=== PATIENT | female | born 1965 | race Hispanic/Latino ===

== ENCOUNTER → 2024-06-12 | Outpatient (CLI) | payer SELFPAY ==
[~2024-06-12] MED LIST: IOHEXOL 350 MG/ML 100ML INFUS..BTL IV ONE; metoPROLOL tartRATE 1 MG/ML 5ML VIAL IV ONE
--- NOTE | 2024-06-12 10:55 | HMCIMG ---
CT CARDIAC ANGIO W/CONT. CCTA REASON: CHEST PAIN COMPARISON: None TECHNIQUE: Images are obtained through the heart in the axial plane before and during bolus IV contrast infusion, 100 cc Omnipaque 350. 2-D and 3-D multiplanar reconstruction images were then performed. The injection had to be repeated once due to motion artifact on the first sequence, total contrast volume was 200 cc. FINDINGS: This dictation is for the noncardiac findings only. Cardiac and coronary artery findings are reported separately. Visualized portions of the lungs are clear. There is normal-appearing pulmonary interstitium. There is no hilar or mediastinal lymphadenopathy. Chest wall structures appear unremarkable. IMPRESSION: 1. Unremarkable noncardiac portions of CT cardiac angiography.
--- NOTE | 2024-06-20 12:36 | CARDIOLOGY ---
RAD REPORT: [facility] CT ANGIO RADIOLOGY REPORT: CORONARY CT ANGIOGRAPHY DATE: Jun 20, 2024 QUALITY: Excellent CLINICAL HISTORY AND INDICATION: [ elevated CACs] TECHNIQUE: After obtaining a preliminary assembler steam and gas turbine image, contrast imaging performed on an [employer] [id number] scanner. A dedicated, limited window, coronary imaging protocol was used, with single breath-hold, retrospective ECG gating, and automated arrhythmia rejection. 100 cc of low osmolar contrast agent: Omnipaque 350 was delivered via a 18-gauge IV catheter in the right antecubital fossa, using a power injector and followed by 60 cc of normal saline bolus as a chaser. Collimated images were reformatted at 0.5 mm intervals, and sent to an offline independent workstation for interpretation, using 3D anatomic reconstructions: Curved multiplanar reconstructions, maximum intensity projections, and multiplanar imaging. No metoprolol was administered prior to scanning due to low baseline heart rate. 0.4 mg SL nitroglycerin was given. CORONARY ARTERY DESCRIPTIONS: The coronary arteries arise in normal position. Left main coronary artery: Normal caliber vessel that bifurcates into the LAD and LCx. No stenosis. Left anterior descending coronary artery: Normal caliber vessel and gives rise to diagonal and septal branches. There is a high risk plaque in the proximal LAD with positive remodeling and spotty calcification with 20-30% stenosis. There is a second high risk plaque in the mid LAD with positive remodeling and spotty calcification associated with 60-70% stenosis. Left circumflex coronary artery: Normal caliber, nondominant and gives rise to a large OM branch. No stenosis. Right coronary artery: Large, dominant vessel giving rise to the PL and PDA branches. No stenosis. CAD-RADs: Moderate to severe stenosis of the mid LAD, which is composed of high risk plaque features. Recommend left heart catheterization if angina or anginal equivalent symptoms and aggressive lipid lowering therapy. Thoracic Aorta: Normal diameter. Misa Salgado MD Cardiovascular Disease [facility] MISA SALGADO MD Jun 20, 2024 12:36
== END | disposition home or self-care (01) ==
LOC: RAH 09:35
PROVIDERS: ATTEND Internal Medicine Cardiovascular Disease
DX: R07.9 Chest pain, unspecified (principal)
CPT/HCPCS: 75574; J3490 ×2; Q9967

== ENCOUNTER 2024-10-27 23:32 | Inpatient (IN) | payer SELFPAY ==
[~2024-10-27] VITALS: Ht 160 cm; Wt 59.1 kg
--- NOTE | 2024-10-28 00:17 | ERN ---
ED Note History of Present Illness Stated Complaint: C/O SOB,CP,TINGLING W/NUMBNESS TO HANDS AND TOES Chief Complaint: Multiple Complaints Time Seen by MD: 00:15 Time Seen by Midlevel: 01:20 Dictation: Ms. Gusman is a 59 year-old female with history of type 2 diabetes, hypertension, hyperlipidemia, and hypothyroidism who presented to the emergency department for evaluation of chest pain. She reports intermittent left-sided chest pain as well as shortness of breath. She also reports feeling dizzy with position changes, chronic neck pain, and numbness and tingling of hands and feet. She denies fever, chills, cough, palpitations, edema, abdominal pain, nausea, vomiting, hematemesis, constipation, diarrhea, melena, hematochezia, dysuria, headache, dysarthria, dysphasia, vision changes, or focal weakness/paresthesia. She denies fall/trauma. She states she has not been taking any medications for her symptoms. She also states she has not been monitoring her blood glucose levels. PCP: Dr. Ovidio Marshall Allergies: Coded Allergies: No Known Allergies (Unverified Allergy, Unknown, 10/27/24) Past Medical History Past Medical History: Diabetes-Type II, High Cholesterol, Hypertension, Hypothyroid Surgical History: Hysterectomy PSYCH History: no pertinent psych hx Social History: Negative, Lives with family History: Not Applicable RN Note Reviewed/Agreed w/PFSH: Yes Review of System Dictation REVIEW OF SYSTEMS: CONSTITUTIONAL: Patient denies fevers, chills, sweats and weight changes. Reports fatigue and general weakness. EYES: Patient denies any visual symptoms. EARS, NOSE, AND THROAT: No difficulties with hearing. No symptoms of rhinitis or sore throat. CARDIOVASCULAR: Patient denies palpitations, orthopnea and paroxysmal nocturnal dyspnea. Reports intermittent left-sided chest pain. RESPIRATORY: No dyspnea on exertion, no wheezing or cough. Reports shortness of breath GI: No nausea, vomiting, diarrhea, constipation, abdominal pain, hematochezia or melena. : No urinary hesitancy or dribbling. No nocturia or urinary frequency. No abnormal urethral discharge. MUSCULOSKELETAL: Reports body aches. States I feel like I have been working out and all my muscles are sore. I have not been working out NEUROLOGIC: No chronic headaches, no seizures. Patient denies numbness, tingling or weakness. Reports dizziness with position changes. Reports tingling sensation of bilateral hands and feet. PSYCHIATRIC: Patient denies problems with mood disturbance. No problems with anxiety. ENDOCRINE: No excessive urination or excessive thirst. States she has not been monitoring blood glucose readings. DERMATOLOGIC: Patient denies any rashes or skin changes. Initial Vital Sign VS Vital Signs Date Time Temp Pulse Resp B/P (MAP) Pulse Ox O2 Delivery O2 Flow Rate FiO2 10/27/24 23:37 98.2 86 20 132/88 100 Room Air 10/28/24 03:45 0 21 Physical Exam Dictation Vital signs: Reviewed. Afebrile Constitutional: No acute distress. Non-toxic appearing. Head/Face: Normocephalic, atraumatic. Eyes: Periorbital areas with no swelling, redness, or edema. Lids and lashes are normal. Conjunctival injection is absent. Sclera anicteric. Pupils equal, round, reactive to light. ENT: Pinnas intact and no signs of trauma or erythema. Ear canals clear and no discharge. TMs no erythema. No nasal discharge or bleeding noted. Oropharynx with no exudate, redness, swelling, masses, exudates, or evidence of obstruction. Uvula midline. Mucous membranes moist. Neck: Trachea midline, no masses palpated, and no cervical lymphadenopathy. No swelling. Supple, full range of motion. Chest/Axilla: No tenderness, no crepitus, no paradoxical movement, no retractions. Cardiovascular: Regular rate, regular rhythm, no murmur, no gallops. Symmetric pulses. No peripheral edema. BP 130/88 Respiratory: Respirations even and unlabored. Lung sounds clear; no wheezes, rales or rhonchi. Room air SpO2 100% Gastrointestinal: Inspection is normal. No distention is appreciated. Bowel sounds are normal. No mass or organomegaly . There is no tenderness. No rebound. No rigidity. No voluntary or involuntary guarding. No Musa's sign. : Urine clear/yellow. Negative CVA tenderness bilaterally. Neurological: Normal speech, gross motor function intact, gross sensory function intact. No focal weakness/Paresthesia. There is no step off deformities or crepitus of the cervical/thoracic or lumbar spine. She has tenderness upon palpation of the entirety of the cervical spine. There is decreased pinprick in bilateral hands and feet. She has been ambulatory with steady gait. Musculoskeletal/Extremities: All extremities have full range of motion, no pain or tenderness on palpation. Symmetric pulses. Moves all extremities strong 5/5. Ambulates with steady gait. Integumentary: Intact. Skin is normal color, warm and dry. Cap refill less than 2 seconds. Results (Laboratory/Radiology) Laboratory/Radiology Laboratory Tests Test 10/28/24 02:08 10/28/24 02:48 White Blood Count 7.2 K/uL (4.8-10.8) Red Blood Count 4.67 MIL/uL (4.00-5.50) Hemoglobin 14.3 g/dL (12.0-16.0) Hematocrit 42.5 % (36-48) Mean Corpuscular Volume 91.0 fL (79-99) Mean Corpuscular Hemoglobin 30.6 pg (27.0-33.0) Mean Corpuscular Hemoglobin Concent 33.6 g/dL (32.0-36.0) Red Cell Distribution Width 12.1 % (11.0-15.5) Platelet Count 218 K/uL (130-400) Mean Platelet Volume 11.1 fL (7.5-10.5) H Immature Granulocyte % (Auto) 0.3 % (0-1) Neutrophils (%) (Auto) 53.3 % (40.0-77.0) Lymphocytes (%) (Auto) 36.1 % (21.0-51.0) Monocytes (%) (Auto) 7.1 % (3.0-13.0) Eosinophils (%) (Auto) 2.2 % (0.0-8.0) Basophils (%) (Auto) 1.0 % (0.0-5.0) Neutrophils # (Auto) 3.8 K/uL (1.8-7.7) Lymphocytes # (Auto) 2.6 K/uL (1.0-4.8) Monocytes # (Auto) 0.5 K/uL (0.1-1.0) Eosinophils # (Auto) 0.16 K/uL (0.00-0.70) Basophils # (Auto) 0.07 K/uL (0.00-0.20) Absolute Immature Granulocyte (auto 0.02 K/uL (0-1) Nucleated Red Blood Cells 0.0 % (0.0-0.19) Sodium Level 139 mmol/L (136-145) Potassium Level 3.8 mmol/L (3.5-5.1) Chloride Level 100 mmol/L (101-111) L Carbon Dioxide Level 29 mmol/L (21-32) Blood Urea Nitrogen 21 mg/dL (7-18) H Creatinine 0.6 mg/dL (0.5-1.0) Glomerular Filtration Rate Calc 103 mL/min (>90) Random Glucose 300 mg/dL (70-105) H Total Calcium 9.5 mg/dL (8.5-10.1) Total Bilirubin 0.5 mg/dL (0.2-1.0) Direct Bilirubin 0.1 mg/dL (0.0-0.3) Aspartate Amino Transf (AST/SGOT) 22 U/L (10-37) Alanine Aminotransferase (ALT/SGPT) 31 U/L (12-78) Alkaline Phosphatase 162 U/L (50-136) H Troponin I High Sensitivity < 4 ng/L (4-50) L Total Protein 8.4 g/dL (6.0-8.3) H Albumin 4.6 g/dL (3.5-5.0) Thyroid Stimulating Hormone (TSH) 1.93 uIU/mL (0.36-3.74) Urine Color COLORLESS (YELLOW) Urine Appearance CLEAR (CLEAR) Urine pH 5.0 (5.0-8.0) Urine Specific [place] 1.008 (1.001-1.031) Urine Protein NEGATIVE mg/dL (NEGATIVE) Urine Glucose (UA) >=1000 mg/dL (NEGATIVE) H Urine Ketones NEGATIVE mg/dL (NEGATIVE) Urine Occult Blood NEGATIVE (NEGATIVE) Urine Nitrate NEGATIVE (NEGATIVE) Urine Bilirubin NEGATIVE mg/dL (NEGATIVE) Urine Urobilinogen 0.2 mg/dL (0.2-1.0) Urine Leukocyte Esterase NEGATIVE Britni/uL Urine RBC None /HPF (0-1) Urine WBC 0-1 /HPF (0-1) Urine Bacteria RARE /HPF (None Seen) Labs Reviewed?: Yes EKG Comment: EKG Interpretation: Time Reviewed: 2342 Ventricular rate: 86 bpm MT Interval: 151 ms QRS duration: [address] segment elevation or depression. Clinical impression: Sinus rhythm EKG Reviewed and interpreted by Dr. Minor X-RAY Comment: PATIENT: JEMIMA GUSMAN MR#: [id number] : 1965 SEX: F AGE: 59 LOCATION: ED ORDER STATUS: [facility] ER REPORT#: [id number] SERVICE REASON: shortness of breath, chest pain ORDERING PHYSICIAN: JAMI HUYNH NP PROCEDURE: CXR1VW - CHEST 1VW EXAM: CR Chest, 1 view CLINICAL HISTORY: Shortness of breath. COMPARISON: Chest radiograph dated 07/24/2007. FINDINGS: The lungs show no infiltrates or other acute findings. No pleural effusion or pneumothorax. The cardiomediastinal silhouette is within normal limits. No acute osseous abnormality. IMPRESSION: No acute cardiopulmonary process is evident. No interval changes. /[place] DICTATED BY: REINIER LEIVA Jr., MD DATE: 10/28/24312 ELECTRONICALLY SIGNED BY: REINIER LEIVA Jr., MD DATE: 10/28/24312 CT Scan Comment: PATIENT: JEMIMA GUSMAN MR#: [id number] : 1965 SEX: F AGE: 59 LOCATION: [facility] ORDER 7 STATUS: [facility] REPORT#: [id number] SERVICE REASON: HEAD INJURY, HEADACHES ORDERING PHYSICIAN: JAMI HUYNH NP PROCEDURE: HEAD WO - CT HEAD/BRAIN W/O CONTRAST EXAM: Non-contrast CT examination of the Brain CLINICAL HISTORY: Head injury. TECHNIQUE: Thin collimated axial CT images of the brain were obtained with sagittal and coronal reformatted images also submitted. CT scan is done according to ALARA (As Low as Reasonably Achievable). CONTRAST USED: None. COMPARISON: None provided. FINDINGS: No acute intracranial abnormality is present. No acute cortical infarction, hemorrhage, mass, or mass effect. No hydrocephalus or abnormal extra-axial fluid collections. The posterior fossa is unremarkable. The skull base and calvarium are intact. The included portions of the paranasal sinuses and mastoid air cells are clear. IMPRESSION: No acute intracranial abnormality is present. /[place] DICTATED BY: REINIER LEIVA Jr., MD DATE: 10/28/24438 ELECTRONICALLY SIGNED BY: REINIER LEIVA Jr., MD DATE: 10/28/24438 ED Course ED Course Orders Procedure Category Date Status Time 12 Lead Ekg Tracing- EKG 10/27/24 Logged Technical 23:42 Chest 1vw RAD 10/28/24 Resulted 00:16 12 Lead Ekg Tracing- EKG 10/28/24 Logged Technical 00:16 Cbc With Differential LAB 10/28/24 Complete 00:16 Basic Metabolic Panel LAB 10/28/24 Complete 00:16 Hepatic Function Panel LAB 10/28/24 Complete 00:16 Urinalysis Profile LAB 10/28/24 Complete 00:16 Troponin I High LAB 10/28/24 Complete Sensitivity 00:16 Thyroid Stimulating LAB 10/28/24 Complete Hormone 02:20 Ct Cervical Spine W/O CT 10/28/24 Resulted Contrast 02:23 Ct Head/Brain W/O CT 10/28/24 Resulted Contrast 02:47 Insulin Regular, PHA 10/28/24 Complete Human 3ml (Humulin R 04:00 Current Medications Medications (Trade) Dose Ordered Sig/Becky Route PRN Reason Start Time Stop Time Status Last Admin Dose Admin Insulin Human Regular (humuLIN R 100 UNIT/ML 3ML) 8 unit ONCE ONCE IV 10/28/24 04:00 10/28/24 04:01 DC 10/28/24 04:04 Vital Signs Date Time Temp Pulse Resp B/P (MAP) Pulse Ox O2 Delivery O2 Flow Rate FiO2 10/28/24 03:45 77 18 129/76 98 Room Air* 0 21 10/27/24 23:37 98.2 86 20 132/88 100 Room Air Vital signs are stable; afebrile and normotensive with room air SpO2 98-100%. Patient complains of a intermittent left-sided chest pain which she described as "pinpricks . 12 lead EKG reflects a sinus rhythm without ST-elevation or depression. Chest x-ray is unremarkable with clear lung wayne. Noncontrast CT scan of the brain unremarkable; no intracerebral hemorrhage. CT scan of the cervical spine revealed questionable nondisplaced acute cortical fracture at the posterior inferior aspect of the C7 spinous process. Cervical vertebral heights well maintained. There her mild degenerative disc disease at multiple levels; most pronounced at C5-C6. There was mild bilateral neuroforaminal narrowing at C5-C6. MRI has been recommended. Finding were discussed with CELESTE Zelaya who accepts patient for admission to Hospitalist group. Dr. Zamorano will be consulted Medical Decision Making MDM MDM: Differential diagnosis: Uncontrolled diabetes/peripheral neuropathy, electrolyte derangement, thyroid dysfunction, ACS, spinal stenosis, ic hemorrhage Rationale: Tests considered and ordered secondary to shared decision making include: labs, ECG and radiology Previous outside records reviewed: Old ER visits. Risk of complication and/or morbidity or mortality of patient management: None Medications-Per medication reconciliation Need for hospitalization: Patient does meet criteria for hospitalization. Need for emergency major/minor surgery: No There are no social concerns with this patient. Prescription drug management Prescriptions will include symptomatic care Patient's prior external medical records from other ER visits were reviewed by me as indicated. Prior testing and results from previous visits were reviewed. Prior tests were taken into account with medical decision making and resource utilization, independent historian/historians were used to obtain complete medical history. I independently interpreted the test that were performed, results were reviewed by me and considered findings on radiology if ordered. Medical management and examination interpretation discussions were had by me with other qualified healthcare professionals as indicated for the patient's care. DX & DISP Disposition: Observation Departure Impression: Primary Impression: Type 2 diabetes mellitus with hyperglycemia Additional Impressions: qustionable acute cortical fracture of C7 sponous process on CT, Dizziness, Paresthesia of both hands, Paresthesia of both feet Condition: Stable Assign Patient to: Dr. Melvi Don Referrals: OVIDIO ALEXANDRE (PCP) JAMI HUYNH NP Oct 28, 2024 00:17
--- NOTE | 2024-10-28 02:14 | HMCIMG ---
EXAM: CR Chest, 1 view CLINICAL HISTORY: Shortness of breath. COMPARISON: Chest radiograph dated 07/24/2007. FINDINGS: The lungs show no infiltrates or other acute findings. No pleural effusion or pneumothorax. The cardiomediastinal silhouette is within normal limits. No acute osseous abnormality. IMPRESSION: No acute cardiopulmonary process is evident. No interval changes. /[place]
[2024-10-28 02:18] LABS: IMMATURE GRANULOCYTE ABSOLUTE 0.02 K/uL (0-1); NUCLEATED RED BLOOD CELLS 0.0 % (0.0-0.19); PLATELET COUNT (AUTO) 218 K/uL (130-400); RED BLOOD CELL COUNT(AUTO) 4.67 MIL/uL (4.00-5.50); RED CELL DISTRIBUTION WIDTH 12.1 % (11.0-15.5); WHITE BLOOD COUNT (AUTO) 7.2 K/uL (4.8-10.8)
[2024-10-28 02:27] LABS: CREATININE 0.6 mg/dL (0.5-1.0); GLOMERULAR FILTR. RATE CALC 103.0 mL/min (>90); GLUCOSE,RANDOM 300.0 mg/dL (70-105); SODIUM SERUM 139.0 mmol/L (136-145); UREA NITROGEN, BLOOD 21.0 mg/dL (7-18)
[2024-10-28 02:32] LABS: ASPARTATE AMINOTRANSFERASE 22.0 U/L (10-37); TOTAL PROTEIN, SERUM 8.4 g/dL (6.0-8.3)
[2024-10-28 02:58] LABS: APPEARANCE,URINE CLEAR (CLEAR); GLUCOSE, URINE (UA) >=1000 mg/dL (NEGATIVE); LEUKOCYTE ESTERASE ,URINE NEGATIVE Leu/uL (NEGATIVE); NITRATE,URINE NEGATIVE (NEGATIVE); OCCULT BLOOD,URINE NEGATIVE (NEGATIVE)
[2024-10-28 02:59] LABS: ADD UA MICROSCOPIC YES
--- NOTE | 2024-10-28 03:01 | NUR ---
PATIENT AT CT SCAN AT THIS TIME.
--- NOTE | 2024-10-28 03:40 | HMCIMG ---
EXAM: Non-contrast CT examination of the Brain CLINICAL HISTORY: Head injury. TECHNIQUE: Thin collimated axial CT images of the brain were obtained with sagittal and coronal reformatted images also submitted. CT scan is done according to ALARA (As Low as Reasonably Achievable). CONTRAST USED: None. COMPARISON: None provided. FINDINGS: No acute intracranial abnormality is present. No acute cortical infarction, hemorrhage, mass, or mass effect. No hydrocephalus or abnormal extra-axial fluid collections. The posterior fossa is unremarkable. The skull base and calvarium are intact. The included portions of the paranasal sinuses and mastoid air cells are clear. IMPRESSION: No acute intracranial abnormality is present. /[place]
--- NOTE | 2024-10-28 03:51 | HMCIMG ---
EXAM: CT Cervical Spine Without IV Contrast CLINICAL HISTORY: Numbness and tingling in both hands and fingers. TECHNIQUE: Thin collimated axial CT images of the cervical spine were obtained with sagittal and coronal reformatted images also submitted. CT scan done according to ALARA (As Low As Reasonably Achievable). CONTRAST: None. COMPARISON: None provided. FINDINGS: Questionable nondisplaced acute cortical fracture at the posterior inferior aspect of the C7 spinous process. The cervical vertebral body heights are maintained. Mild straightening of the expected cervical lordosis with subtle dextrocurvature reflects paraspinal muscle spasm. Mild spondylosis is evident by marginal osteophytes and facet arthropathy at multiple levels. Mild degenerative disc disease at multiple levels, most pronounced at C5-C6. Mild bilateral neuroforaminal narrowing at C5-C6. No spinal/stenosis. Presumed post-total thyroidectomy status. The included lungs are clear. No focal soft tissue abnormality is evident in the neck. IMPRESSIONS: Questionable nondisplaced acute cortical fracture at the posterior inferior aspect of the C7 spinous process. Please check clinically for local tenderness. MRI of the cervical spine may be done for further evaluation. Mild straightening of the expected cervical lordosis with subtle dextrocurvature reflects paraspinal muscle spasm. Mild spondylosis and degenerative disc disease, most pronounced at C5-C6. /[place]
--- NOTE | 2024-10-28 04:56 | NUR ---
STEVIE VEGETABLE TESTER AT BEDSIDE.
--- NOTE | 2024-10-28 05:40 | HP ---
[facility] Date of Service: Oct 28, 2024 Time of Service: 05:14 PCP: Rolando Nolan HISTORY OF PRESENT ILLNESS: This is a 59 year old female with past medical history of diabetes ,hypertension,hyperlipidemia and hypothyroidism who presents to the ED for multiple complaints such as intermittent chest pain located at left sided chest,shortness of breath ,temporal headache,dizziness ,neck pain,numbness and tingling sensation of both feet and left shoulder pain which has been on going for the past few weeks but decided to come because chest pain has been becoming more frequent now.Patient reports she knows her blood sugar has been high because she is not taking her meds because of the side effects she said.Patient reports she had a cardiac catheterization done in 2009 and she was unable to recall any result.Patient also states last she underwent a coronary CT angiography and result revealed high risk plaque in the mid LAD with 60-70% stenosis and plan to do cardiac cath if angina or anginal equivalent symptoms as per documentation on 06/20/2024 .Patient also reports she fell backward near the swimming pool at home 2 months ago and hitting her head but no loss of consciousness she said . Seen and examined patient in the Er awake ,alert and coherent,appears comfortable.Patient denies fever,chills,nausea,vomiting,abdominal pain,cough and palpitation. Latest vital signs temperature 98.2, heart rate 77, blood pressure 129/76, saturation 98% on room air. Labs: CBC result is unremarkable. Chloride 100, BUN 21, random glucose 300 alkaline phosphatase 162, total protein 8.4 TSH 1.93. Urinalysis significant with glucosuria otherwise unremarkable. CT head result revealed no acute intracranial abnormalities present. CT cervical spine without contrast result revealed questionable nondisplaced acute cortical fracture at the posterior inferior aspect of the C7 spinous process. Please check clinically for local tenderness. MRI of the cervical spine may be done for further evaluation. Mild straightening of the expected cervical lordosis with subtle dextro curvature reflects paraspinal muscle spasm. Mild spondylosis and degenerative disc disease most pronounced at C5-C6. Chest x-ray result revealed no acute cardiopulmonary process is evident. No interval changes. EKG result revealed sinus rhythm heart rate 86. While in the ER patient received 8 units of insulin IV. We will admit patient for further medical management. REVIEW OF SYSTEMS CONSTITUTIONAL: Denies fevers, chills, or night sweats. No unintentional weight loss reported. NEUROLOGICAL: Positive dizziness and headache Denies amaurosis fugax, motor weakness, sensory deficit, gait abnormalities, or tremors. ENT: No hearing loss, otalgia, otorrhea, rhinitis, rhinorrhea, hoarseness, or sore throat. CARDIOVASCULAR: Positive left sided chest pain Denies any dyspnea on exertion, orthopnea, paroxysmal nocturnal dyspnea, palpitations, life- threatening arrhythmias, claudication. PULMONARY: Positive shortness of breaths Denies cough, phlegm/sputum, hemoptysis, pleuritic chest pain. SLEEP: Denies morning headaches, daytime somnolence or napping. Denies difficulty falling asleep, staying asleep, waking from sleep. Denies knowledge of snoring. GASTROINTESTINAL: Denies any type of dysphagia to either liquids or solids. Denies nausea, vomiting, pyrosis, early satiety, abdominal pain, diarrhea, constipation, or changes in stool consistency or caliber. Denies coffee-ground emesis, hematemesis, hematochezia, or melanotic stools. GENITOURINARY: Denies frequency, urgency, nocturia, hematuria or incontinence (Storage/Irritative symptoms.) Low urinary stream, straining to void, urinary intermittency or hesitancy, splitting of the voiding stream, terminal dribbling. ENDOCRINOLOGIC: Denies polyuria, polydipsia, polyphagia or heat/cold intolerances. HEMATOLOGIC: Denies thrombophilia/previous clots, or coagulopathy/bleeding disorders. ONCOLOGIC: Denies personal history of malignancy. DERMATOLOGIC: Denies rashes or pruritus. PSYCHIATRIC: Denies any suicidal or homicidal ideation. Denies hallucinations. PAST MEDICAL HISTORY: [ Hypothyroidism, hyperlipidemia, hypertension and diabetes ] PAST SURGICAL HISTORY: [ Cardiac catheterization 2010 and hysterectomy] PAST SOCIAL HISTORY: [ Patient lives with . Patient admits to drinking two bottles of double X per week Patient denies cigarette and recreational drug use] FAMILY HISTORY: [Noncontributory ] Coded Allergies: No Known Allergies (Unverified Allergy, Unknown, 10/27/24) PHYSICAL EXAM GENERAL APPEARANCE: The patient is awake, alert, and oriented, in no acute cardiopulmonary distress. NEUROLOGICAL: Cranial nerves II-XII grossly intact. Motor is 5/5 in bilateral upper and lower extremities proximal to distal. No sensory deficits. HEENT: Face is symmetric. Pupils are equal and reactive. Extraocular movements are intact. NECK: Supple. No JVD. No thyromegaly. No submental, submandibular, pre- /postauricular, occipital or supraclavicular lymphadenopathy. CHEST: Normal chest expansion. No Telemetry. LUNGS: Absence of any rales, rhonchi or any wheezing. CARDIOVASCULAR: Regular. S1 and S2 normal. No appreciable rubs, murmurs or gallops. ABDOMEN: Soft, nontender, and nondistended. There is no rebound, voluntary guarding, or rigidity. : Deferred. No Mayers. EXTREMITIES: Positive paresthesia to both feet and hands Non-edematous and not cyanotic. No clubbing. Good capillary refill. SKIN: No skin breakdown. Vital Sign (Last 24 Hours) 10/27/24 10/28/24 23:37 03:45 Temp 98.2 Pulse 77 Resp 18 B/P (MAP) 129/76 Pulse Ox 98 O2 Delivery Room Air* O2 Flow Rate 0 FiO2 21 LABS: Laboratory: Test 10/28/24 02:48 10/28/24 02:08 Range/Units Urine Color COLORLESS YELLOW Urine Appearance CLEAR CLEAR Urine pH 5.0 5.0-8.0 Urine Specific [place] 1.008 1.001-1.031 Urine Protein NEGATIVE NEGATIVE mg/dL Urine Glucose (UA) >=1000 H NEGATIVE mg/dL Urine Ketones NEGATIVE NEGATIVE mg/dL Urine Occult Blood NEGATIVE NEGATIVE Urine Nitrate NEGATIVE NEGATIVE Urine Bilirubin NEGATIVE NEGATIVE mg/dL Urine Urobilinogen 0.2 0.2-1.0 mg/dL Urine Leukocyte Esterase NEGATIVE NEGATIVE Britni/uL Urine RBC None 0-1 /HPF Urine WBC 0-1 0-1 /HPF Urine Bacteria RARE None Seen /HPF White Blood Count 7.2 4.8-10.8 K/uL Red Blood Count 4.67 4.00-5.50 MIL/uL Hemoglobin 14.3 12.0-16.0 g/dL Hematocrit 42.5 36-48 % Mean Corpuscular Volume 91.0 79-99 fL Mean Corpuscular Hemoglobin 30.6 27.0-33.0 pg Mean Corpuscular Hemoglobin Concent 33.6 32.0-36.0 g/dL Red Cell Distribution Width 12.1 11.0-15.5 % Platelet Count 218 130-400 K/uL Mean Platelet Volume 11.1 H 7.5-10.5 fL Immature Granulocyte % (Auto) 0.3 0-1 % Neutrophils (%) (Auto) 53.3 40.0-77.0 % Lymphocytes (%) (Auto) 36.1 21.0-51.0 % Monocytes (%) (Auto) 7.1 3.0-13.0 % Eosinophils (%) (Auto) 2.2 0.0-8.0 % Basophils (%) (Auto) 1.0 0.0-5.0 % Neutrophils # (Auto) 3.8 1.8-7.7 K/uL Lymphocytes # (Auto) 2.6 1.0-4.8 K/uL Monocytes # (Auto) 0.5 0.1-1.0 K/uL Eosinophils # (Auto) 0.16 0.00-0.70 K/uL Basophils # (Auto) 0.07 0.00-0.20 K/uL Absolute Immature Granulocyte (auto 0.02 0-1 K/uL Nucleated Red Blood Cells 0.0 0.0-0.19 % Sodium Level 139 136-145 mmol/L Potassium Level 3.8 3.5-5.1 mmol/L Chloride Level 100 L 101-111 mmol/L Carbon Dioxide Level 29 21-32 mmol/L Blood Urea Nitrogen 21 H 7-18 mg/dL Creatinine 0.6 0.5-1.0 mg/dL Glomerular Filtration Rate Calc 103 >90 mL/min Random Glucose 300 H 70-105 mg/dL Total Calcium 9.5 8.5-10.1 mg/dL Total Bilirubin 0.5 0.2-1.0 mg/dL Direct Bilirubin 0.1 0.0-0.3 mg/dL Aspartate Amino Transf (AST/SGOT) 22 10-37 U/L Alanine Aminotransferase (ALT/SGPT) 31 12-78 U/L Alkaline Phosphatase 162 H 50-136 U/L Troponin I High Sensitivity < 4 L 4-50 ng/L Total Protein 8.4 H 6.0-8.3 g/dL Albumin 4.6 3.5-5.0 g/dL Thyroid Stimulating Hormone (TSH) 1.93 0.36-3.74 uIU/mL DIAGNOSTICS / RADIOLOGY: [ ] ASSESSMENT: Hyperglycemia - induced metabolic symptoms POA Diabetic neuropathy POA Chest pain R/O ACS POA Suspected cervical spine fracture per CT POA Uncontrolled diabetes due to medical non complaince with meds POA Hypertension POA Hyperlipidemia POA Hypothyroidism POA Moderate to severe stenosis of the mid LAD per CTA report on 06/20/2024 POA PLAN: We will admit patient in medical telemetry We will start on heart healthy and consistent carb diet We will start NS @ 100 ml / hr x 1 bag and re evaluate We will start on Aspirin 81 mg po daily atorvastatin 20 mg p.o. daily We will start on Famotidine 20 mg po bid for GI prophylaxis We will replace electrolytes as needed per protocol We will start on insulin sliding scale AC & HS with hypoglycemia protocol We will add prn medication for fever,pain,cough , nausea and vomiting We will reconcile home meds once medlist available We will seek Cardiology consultation We will seek neurosurgeon consultation We will trend troponin q.6 x3 Neuro check q.4 hours per nursing We will request labs in am Further orders to follow depending on above results Case discussed with attending physician and came up with above treatment and plan of care. ADVANCED CARE PLANNING 1. Which of the following were discussed? Hospice Care - No Therapeutic options - Yes Advance Directives - No Other discussions - 2. Discussed with who? Patient 3. Voluntary nature of this service was explained to the patient? Yes 4. Amount of time spent - __24 5. Reviewed by Physician? (if this service was performed by NPP) Yes Patient seen and examined by me. Agree with note by RADIO INSTALLER SEE ADDITIONAL ORDERS PER CHART DISCUSSED WITH NURSING STAFF DANNY HUBBARD INDUCTION MACHINE OPERATOR Oct 28, 2024 05:40
[2024-10-28] MEDS ORDERED: GLUCAGON 1MG KIT 1 MG ML IM PRN (06:00)
[2024-10-28] MEDS ORDERED: NITROGLYCERIN 0.4 MG SL TAB SL PRN (06:00)
[2024-10-28] MEDS ORDERED: PoTASSium chloRIDE 20MEQ ER 20 MEQ ERTAB PO PRN (06:00)
[2024-10-28] MEDS ORDERED: PoTASSium chl 10% ELIXIR 20MEQ 20 MEQ/15 ML UDCUP PO PRN (06:00)
[2024-10-28] MEDS ORDERED: DEXTROSE 50%-WATER 50 ML DISP.SYRIN IV PRN (06:00)
[2024-10-28] MEDS: 0.9%NACL 1000ML 1,000 ML IV SCH (06:24)
--- NOTE | 2024-10-28 06:39 | EKG ---
[facility] Test Date: 2024-10-27 Test Time: 23:35:49 Pat Name: JEMIMA JERNIGAN Department: [facility]IP Room: 329 Gender: F Diagrammer: [id number] : 1965 Requested By: MARCIE MATOS Order Number: [id number] Reading MD: Fariha Andujar Measurements Intervals [place] Rate: 86 P: 5 UT: 151 QRS: 54 QRSD: 82 T: 56 QT: 338 QTc: 404 Interpretive Statements Sinus rhythm No previous ECG available for comparison Electronically Signed On 10-29-2024 14:12:01 CDT by Fariha Andujar Please click the below link to view image of tracing.
[2024-10-28 07:49] LABS: IMMATURE GRANULOCYTE ABSOLUTE 0.01 K/uL (0-1); NUCLEATED RED BLOOD CELLS 0.0 % (0.0-0.19); PLATELET COUNT (AUTO) 183 K/uL (130-400); RED BLOOD CELL COUNT(AUTO) 4.21 MIL/uL (4.00-5.50); RED CELL DISTRIBUTION WIDTH 12.0 % (11.0-15.5); WHITE BLOOD COUNT (AUTO) 6.2 K/uL (4.8-10.8)
[2024-10-28 08:03] LABS: CREATININE 0.6 mg/dL (0.5-1.0); GLOMERULAR FILTR. RATE CALC 103.0 mL/min (>90); GLUCOSE,RANDOM 211.0 mg/dL (70-105); SODIUM SERUM 144.0 mmol/L (136-145); UREA NITROGEN, BLOOD 17.0 mg/dL (7-18)
[2024-10-28 08:14] LABS: ASPARTATE AMINOTRANSFERASE 18.0 U/L (10-37); LDL DIRECT 91.0 mg/dL (0-99); TOTAL PROTEIN, SERUM 7.3 g/dL (6.0-8.3)
[2024-10-28] MEDS: FAMOTIDINE 20MG TAB PO SCH (08:27)
[2024-10-28] MEDS: ASPIRIN 81 MG EC TAB PO SCH ×2 (08:27→10:30)
[2024-10-28] MEDS ORDERED: ASPIRIN 81 MG EC TAB PO SCH (09:00)
[2024-10-28 09:08] LABS: ERYTHROCYTE SEDIMENTATION RATE 10 MM/HR (0-30)
--- NOTE | 2024-10-28 09:42 | NUR ---
DCP: HOME Pt currently lives with her dgt in her home. Pt does not report insecurities with food, mcfp, and/or utilities. Pt does not use any DME, home health, or provider services. Pt is able to complete ADLs independently. PCP is Dr. Ovidio Bates and uses [facility] for any RX needs. At [place] pt will return home and family can assist with transportation. Addendum: 10/28/24 at 0944 by EVELINA MACIAS SS Amended: Links added.
--- NOTE | 2024-10-28 10:16 | CONS ---
Cardiology Consult Note Cardiology Attending: Chilo Hurt Consulting Physician: Maryist Date of Service: 10/28/24 Reason for Consult: Chest Pain HPI: This is a 59-year-old female with a past medical history of HTN, poorly controlled DM2 (hemoglobin A1c 14), HLP, hypertriglyceridemia, depression, thy roid cancer status post complete thyroidectomy done in 2008 with resulting hypothyroidism, left ventricle systolic dysfunction (LVEF 40-45% by echocardiogram done on 02/21/2024), calcium score of [address] Heart Saver exam done on 08/21/2023 and abnormal coronary CTA done on 06/20/2024 which identified 60-70% stenosis in the mid LAD who presents after experiencing a mechanical fall. The patient states that she slipped and fell and hurt her back. She subsequently came to the hospital and underwent a CT of the spine which identified a nondisplaced acute cortical fracture at the posterior inferior aspect of the C7 spinous process. MRI of the cervical spine and consult with Neurosurgery is pending. The patient also complains of chest pain, of more than three months in duration. The symptoms began spontaneously and during this timeframe has been intermittent and occur 3-4 times per week. The symptoms developed both at rest and with physical activity, and are described as dull in quality, 5/10 intensity, nonradiating. The symptoms last less than 5 minutes, resolved without any specific treatment. The patient denies any associated symptoms or any other active complaints including headache, syncope, palpitations, shortness for breath, dyspnea with exertion, PND, orthopnea, abdominal pain, weight gain, or lower extremity swelling/edema. PMH: Listed above PSH: Listed above FH: Significant for CAD, HTN, DMII, and CVA. SH: Denies alcohol, tobacco, or illicit drug use. Allergies: Coded Allergies: No Known Allergies (Unverified Allergy, Unknown, 10/27/24) Review of systems: General: Denies fever or chills HEENT: Denies changes in vision, earache or sore throat Neck: Denies pain or stiffness Cardio: As per the HPI Pulm: Denies SOB, coughing or wheezing GI: Denies abdominal pain, nausea, vomiting, diarrhea, or constipation. MSK: Positive for back pain. Heme: Denies anemia, easy bruising, or bleeding. Neuro: Denies headache, dizziness, or syncope. Psych: Denies anxiety, depression, or suicide ideations. Physical Exam: Vital Signs Date Time Temp Pulse Resp B/P (MAP) Pulse Ox O2 Delivery O2 Flow Rate FiO2 10/28/24 08:00 98.1 69 17 126/76 100 Room Air* 0 21 General: Alert and oriented x 3. NAD HEENT: NC/AT. Oral mucosa is moist. Neck: No masses, JVD, or carotid bruits Lungs: NRD. SCM. B/L CTA. No wheezing, rales or rhonchi. Cardio: Rate @ 69bpm. Normal S1 and S2. +S4. PMI was not displaced. Abdomen: Soft. NT. ND. Normal active bowel sounds x 4 quadrants. Extremities: No edema, clubbing or cyanosis. +2 pulses noted throughout. Neuro: CN II-XII were grossly intact. No focal deficits. Labs: Laboratory Tests Test 10/28/24 02:08 10/28/24 02:48 10/28/24 07:41 10/28/24 07:42 Range/Units White Blood Count 7.2 6.2 4.8-10.8 K/uL Red Blood Count 4.67 4.21 4.00-5.50 MIL/uL Hemoglobin 14.3 13.0 12.0-16.0 g/dL Hematocrit 42.5 37.9 36-48 % Mean Corpuscular Volume 91.0 90.0 79-99 fL Mean Corpuscular Hemoglobin 30.6 30.9 27.0-33.0 pg Mean Corpuscular Hemoglobin Concent 33.6 34.3 32.0-36.0 g/dL Red Cell Distribution Width 12.1 12.0 11.0-15.5 % Platelet Count 218 183 130-400 K/uL Mean Platelet Volume 11.1 H 10.8 H 7.5-10.5 fL Immature Granulocyte % (Auto) 0.3 0.2 0-1 % Neutrophils (%) (Auto) 53.3 46.9 40.0-77.0 % Lymphocytes (%) (Auto) 36.1 39.3 21.0-51.0 % Monocytes (%) (Auto) 7.1 9.7 3.0-13.0 % Eosinophils (%) (Auto) 2.2 3.1 0.0-8.0 % Basophils (%) (Auto) 1.0 0.8 0.0-5.0 % Neutrophils # (Auto) 3.8 2.9 1.8-7.7 K/uL Lymphocytes # (Auto) 2.6 2.4 1.0-4.8 K/uL Monocytes # (Auto) 0.5 0.6 0.1-1.0 K/uL Eosinophils # (Auto) 0.16 0.19 0.00-0.70 K/uL Basophils # (Auto) 0.07 0.05 0.00-0.20 K/uL Absolute Immature Granulocyte (auto 0.02 0.01 0-1 K/uL Nucleated Red Blood Cells 0.0 0.0 0.0-0.19 % Sodium Level 139 144 136-145 mmol/L Potassium Level 3.8 3.7 3.5-5.1 mmol/L Chloride Level 100 L 105 101-111 mmol/L Carbon Dioxide Level 29 29 21-32 mmol/L Blood Urea Nitrogen 21 H 17 7-18 mg/dL Creatinine 0.6 0.6 0.5-1.0 mg/dL Glomerular Filtration Rate Calc 103 103 >90 mL/min Random Glucose 300 H 211 H 70-105 mg/dL Total Calcium 9.5 9.2 8.5-10.1 mg/dL Total Bilirubin 0.5 0.6 0.2-1.0 mg/dL Direct Bilirubin 0.1 0.0-0.3 mg/dL Aspartate Amino Transf (AST/SGOT) 22 18 10-37 U/L Alanine Aminotransferase (ALT/SGPT) 31 26 12-78 U/L Alkaline Phosphatase 162 H 121 # 50-136 U/L Troponin I High Sensitivity < 4 L 4 4-50 ng/L Total Protein 8.4 H 7.3 6.0-8.3 g/dL Albumin 4.6 3.9 3.5-5.0 g/dL Thyroid Stimulating Hormone (TSH) 1.93 2.23 0.36-3.74 uIU/mL Urine Color COLORLESS YELLOW Urine Appearance CLEAR CLEAR Urine pH 5.0 5.0-8.0 Urine Specific [place] 1.008 1.001-1.031 Urine Protein NEGATIVE NEGATIVE mg/dL Urine Glucose (UA) >=1000 H NEGATIVE mg/dL Urine Ketones NEGATIVE NEGATIVE mg/dL Urine Occult Blood NEGATIVE NEGATIVE Urine Nitrate NEGATIVE NEGATIVE Urine Bilirubin NEGATIVE NEGATIVE mg/dL Urine Urobilinogen 0.2 0.2-1.0 mg/dL Urine Leukocyte Esterase NEGATIVE NEGATIVE Britni/uL Urine RBC None 0-1 /HPF Urine WBC 0-1 0-1 /HPF Urine Bacteria RARE None Seen /HPF Erythrocyte Sedimentation Rate 10 0-30 MM/HR Hemoglobin A1c 14.0 H 4.0-6.0 % Estimated Average Glucose (eAG) 355 H 70-126 mg/dL Magnesium Level 1.80 1.80-2.40 mg/dL Triglycerides Level 118 30-200 mg/dL Cholesterol Level 161 <200 mg/dL LDL Cholesterol 91 0-99 mg/dL HDL Cholesterol 46 35-85 mg/dL Vitamin B12 Level 370 193-986 pg/mL Free Thyroxine (T4) Direct 1.60 H 0.76-1.46 ng/dL Whole Blood Glucose 200 H 70-110 MG/DL Assessment: 1. Mechanical fall 2. Non displaced acute cortical fracture of the posterior inferior aspect of the C7 spinous process 3. Chest pain 4. Abnormal coronary CTA (60-70% stenosis in the mid LAD) 5. Left ventricle systolic dysfunction (LVEF 40-45% by echocardiogram done on 02/21/2024) 6. Poorly controlled DM2 (hemoglobin A1c 14) 7. HLP 8. Hypertriglyceridemia 9. HTN Plan: 1. Mechanical fall -Resulting in a nondisplaced acute cortical fracture of the posterior inferior aspect of the C7 spinous process -MRI of the spine is pending -Neurosurgery consult is pending 2. Chest pain -stable -ECG 10/27/2024: sinus rhythm. No ST elevation or depression noted. -laboratory data: Troponin I - <4, 4 -echocardiogram 02/21/2024: Mild concentric hypertrophy of the left ventricle was noted. There was mild anterior and apical hypokinesis. Left ventricle sys tolic function is mildly depressed, estimated LVEF 40-45%. Grade 1 diastolic dysfunction. Trace MR and TR by color-flow Doppler. -coronary CTA 06/20/2024: 60-70% stenosis in the mid LAD. the other arteries are grossly normal and free of stenosis -the patient presents with chest pain of more than three months in duration. The symptoms began spontaneously and during this timeframe has been intermittent and occur 3-4 times per week. The symptoms developed both at rest and with physical activity, and are described as dull in quality, 5/10 intensity, nonradiating. The symptoms last less than 5 minutes, resolved without any specific treatment. The patient denies any associated symptoms -the patient's symptoms are atypical, and thus far ACS has been ruled out. Of concern is the above-mentioned coronary CTA which identified 60-70% stenosis in the mid LAD. We were tentatively planning an LHC/coronary angiogram/possible PCI further evaluate and treat this issue, but the patient's mechanical fall, was resulting nondisplaced acute cortical fracture of the posterior inferior aspect of the C7 spinous process takes precedence. We will await Neurosurgery's recommendations regarding this issue before scheduling the procedure. In the meantime the patient will be started on goal-directed medical therapy which includes metoprolol succinate 25 mg daily, aspirin 81 mg daily, isosorbide mononitrate ER 30 mg daily and rosuvastatin 40 mg q.h.s.. 3. Left ventricle systolic dysfunction (LVEF 40-45% by echocardiogram done on 02/21/2024 -stable -continue metoprolol succinate 25 mg daily Thank you for this interesting consult and allowing us to participate in the care of your patient. Further recommendations to follow. CHILO HURT MD Oct 28, 2024 10:16
[2024-10-28 10:18] VITALS: O2SAT 98
[2024-10-28] MEDS: ISOSORBIDE MONO 30MG SR TAB PO SCH (10:35)
[2024-10-28 12:00] VITALS: BP 114/69; PULSE 84; RESP 17; TEMP 97.5
[2024-10-28 17:57] VITALS: BP 124/79; PULSE 73; RESP 18; TEMP 97.5; O2SAT 98
--- NOTE | 2024-10-28 18:20 | DS ---
HOSPITAL COURSE: The patient is a 59-year-old female patient who had been admitted through the emergency room with multiple complaints of generalized pain. CT scan was obtained and I was consulted due to the possible findings of a fracture. She recalls no trauma. She also referred some neck pain. Has been hemodynamically stable. She denies any nausea or vomiting and she does refer some heaviness in the chest and to the left shoulder as well. PHYSICAL EXAMINATION: GENERAL: She was asleep in her room at the emergency room. Easily arousable. She was able to answer questions properly. VITAL SIGNS: Stable. NECK: Minimal neck tenderness. CHEST: Symmetrical. She does refer the chest pain. ABDOMEN: Soft. NEUROLOGIC: She is able to move all 4 extremities. There are no motor or sensory disturbances noted. At this time, the patient has been evaluated and Primary Care has consulted Cardiology. Apparently, she is scheduled for a cardiac catheterization. A CT scan of the cervical spine was reviewed and there is no gross fracture or dislocation. They do refer the tip of the spinous process of C7, but for me, it does not seem to be anything acute, and if there is any fracture at all, there is no subluxation and there is somewhat decrease of the cervical lordosis. There is no gross disk herniation noted. The patient certainly would benefit from further evaluation from the cardiac standpoint of view and she can be followed at the clinic and/or pain management with physical therapy. The patient was addressed with the staff nurse present. TID: [id number] RECEIPT: [id number]
--- NOTE | 2024-10-28 18:49 | NUR ---
PATIENT ARRIVED TO ROOM 329 AT 1757.
[2024-10-28] MEDS ORDERED: ROSU40TA88 PO (19:09)
[2024-10-28] MEDS ORDERED: METO-408 PO (19:09)
[2024-10-28] MEDS ORDERED: LEVO150C5 PO (19:09)
[2024-10-28] MEDS ORDERED: GABA300C PO (19:09)
[2024-10-28] MEDS ORDERED: MELO-106 PO (19:09)
[2024-10-28] MEDS ORDERED: POTASSIUM PO (19:09)
[2024-10-28] MEDS ORDERED: LORA10TA7 PO (19:09)
[2024-10-28] MEDS ORDERED: TRAZ-185 PO (19:09)
[2024-10-28 20:00] VITALS: BP 111/65; PULSE 83; RESP 17; TEMP 97.5; O2SAT 83
[2024-10-28 23:59] VITALS: BP 120/77; PULSE 67; RESP 17; TEMP 97.5
[2024-10-29] VITALS (15 sets, daily range): BP systolic 111–136; BP diastolic 62–90; PULSE 67–92; RESP 16–20; TEMP 97.5–98.1; O2SAT 98
[2024-10-29 07:45] LABS: INR 0.97 (0.85-1.15)
[2024-10-29] MEDS ORDERED: LIDOCAINE HCL 400MG/20ML VIAL ONE (11:22)
[2024-10-29] MEDS ORDERED: IOHEXOL 350 MG/ML 100ML INFUS..BTL IV ONE ×2 (11:22→13:51)
[2024-10-29] MEDS ORDERED: HEParin-NS 1,000 UNIT/500 ML 1,000 ML IV ONE (11:22)
[2024-10-29] MEDS ORDERED: NITROGLYCERIN 50MG VIAL ONE (11:23)
--- NOTE | 2024-10-29 11:40 | NUR ---
PT OUT OF ROOM FOR C.
[2024-10-29] MEDS ORDERED: MIDAZOLAM HCL 1 MG/ML 2ML VIAL ONE ×2 (12:04→13:21)
--- NOTE | 2024-10-29 12:13 | CONS ---
CONSULT NOTE: endocrinology consult patient was not in the room and was in procedure. ASSESSMENT: Hyperglycemia -secondary to uncontrolled dm-2, POA hba1c 14.0% glucose are elevated. home meds unknown Diabetic neuropathy POA Chest pain R/O ACS POA cardiology following Suspected cervical spine fracture per CT POA Uncontrolled diabetes due to medical non compliance with meds POA Hypertension POA Hyperlipidemia POA Hypothyroidism POA Moderate to severe stenosis of the mid LAD per CTA report on 06/20/2024 POA plan: start lantus 15 units daily start regular insulin 5 units qac before meals increase ssi to medium dose ssi monitor glucose qx6 hourly thanks for allowing me to participate in patient care and will continue to follow up. Vital Signs 10/28/24 10/29/24 20:00 11:26 Temp 98.1 Pulse 70 Resp 18 B/P (MAP) 117/75 Pulse Ox 98 O2 Delivery Room Air O2 Flow Rate 0 FiO2 21 Hematology Labs: Test 10/28/24 07:41 Range/Units White Blood Count 6.2 4.8-10.8 K/uL Red Blood Count 4.21 4.00-5.50 MIL/uL Hemoglobin 13.0 12.0-16.0 g/dL Hematocrit 37.9 36-48 % Mean Corpuscular Volume 90.0 79-99 fL Mean Corpuscular Hemoglobin 30.9 27.0-33.0 pg Mean Corpuscular Hemoglobin Concent 34.3 32.0-36.0 g/dL Red Cell Distribution Width 12.0 11.0-15.5 % Platelet Count 183 130-400 K/uL Mean Platelet Volume 10.8 H 7.5-10.5 fL Immature Granulocyte % (Auto) 0.2 0-1 % Neutrophils (%) (Auto) 46.9 40.0-77.0 % Lymphocytes (%) (Auto) 39.3 21.0-51.0 % Monocytes (%) (Auto) 9.7 3.0-13.0 % Eosinophils (%) (Auto) 3.1 0.0-8.0 % Basophils (%) (Auto) 0.8 0.0-5.0 % Neutrophils # (Auto) 2.9 1.8-7.7 K/uL Lymphocytes # (Auto) 2.4 1.0-4.8 K/uL Monocytes # (Auto) 0.6 0.1-1.0 K/uL Eosinophils # (Auto) 0.19 0.00-0.70 K/uL Basophils # (Auto) 0.05 0.00-0.20 K/uL Absolute Immature Granulocyte (auto 0.01 0-1 K/uL Nucleated Red Blood Cells 0.0 0.0-0.19 % Erythrocyte Sedimentation Rate 10 0-30 MM/HR Chemistry Labs: Test 10/29/24 11:14 10/28/24 20:15 10/28/24 07:41 10/28/24 02:08 Range/Units Whole Blood Glucose 210 H 70-110 MG/DL Troponin I High Sensitivity < 4 L 4-50 ng/L Sodium Level 144 136-145 mmol/L Potassium Level 3.7 3.5-5.1 mmol/L Chloride Level 105 101-111 mmol/L Carbon Dioxide Level 29 21-32 mmol/L Blood Urea Nitrogen 17 7-18 mg/dL Creatinine 0.6 0.5-1.0 mg/dL Glomerular Filtration Rate Calc 103 >90 mL/min Random Glucose 211 H 70-105 mg/dL Hemoglobin A1c 14.0 H 4.0-6.0 % Estimated Average Glucose (eAG) 355 H 70-126 mg/dL Total Calcium 9.2 8.5-10.1 mg/dL Magnesium Level 1.80 1.80-2.40 mg/dL Total Bilirubin 0.6 0.2-1.0 mg/dL Aspartate Amino Transf (AST/SGOT) 18 10-37 U/L Alanine Aminotransferase (ALT/SGPT) 26 12-78 U/L Alkaline Phosphatase 121 # 50-136 U/L Total Protein 7.3 6.0-8.3 g/dL Albumin 3.9 3.5-5.0 g/dL Triglycerides Level 118 30-200 mg/dL Cholesterol Level 161 <200 mg/dL LDL Cholesterol 91 0-99 mg/dL HDL Cholesterol 46 35-85 mg/dL Vitamin B12 Level 370 193-986 pg/mL Thyroid Stimulating Hormone (TSH) 2.23 0.36-3.74 uIU/mL Free Thyroxine (T4) Direct 1.60 H 0.76-1.46 ng/dL Direct Bilirubin 0.1 0.0-0.3 mg/dL Coagulation Labs: Test 10/29/24 07:24 Range/Units Prothrombin Time 10.3 9.6-11.6 SEC Prothromb Time International Ratio 0.97 0.85-1.15 Activated Partial Thromboplast Time 23.3 L 26.3-35.5 SEC Current Medications Medications (Trade) Dose Ordered Sig/Becky Route Start Time Stop Time Status Last Admin Dose Admin Aspirin (Aspirin 81mg Ec Tab) 81 mg DAILY PO 10/28/24 09:00 10/28/24 06:12 DC Aspirin (Aspirin 81mg Ec Tab) 81 mg DAILY PO 10/28/24 09:00 10/28/24 10:22 DC 10/28/24 08:27 81 MG Aspirin (Aspirin 81mg Ec Tab) 81 mg DAILY PO 10/28/24 10:30 11/27/24 10:29 Atorvastatin Calcium (LIPItor 20MG) 20 mg HS PO 10/28/24 21:00 10/28/24 10:18 DC Atorvastatin Calcium (LIPItor 40MG) 40 mg HS PO 10/28/24 21:00 11/27/24 20:59 10/28/24 20:31 40 MG Famotidine (Pepcid 20mg Tab) 20 mg BID PO 10/28/24 09:00 11/27/24 08:59 10/28/24 20:31 20 MG Insulin Glargine (LANtus 100 UNITS/ML 10 ML VIAL) 11 units HS SQ 10/29/24 21:00 11/28/24 20:59 Insulin Human Regular (humuLIN R 100 UNIT/ML 3ML) 4 unit TIDAC SQ 10/29/24 11:30 11/28/24 11:29 Insulin Human Regular (humuLIN R 100 UNIT/ML 3ML) INSULIN SLIDING SCAL... ACHS SQ 10/28/24 07:30 11/27/24 07:29 10/28/24 21:11 5 UNIT Isosorbide Mononitrate (Imdur 30mg Sr) 30 mg DAILY PO 10/28/24 10:30 11/27/24 10:29 10/28/24 10:35 30 MG Metoprolol Succinate (TopROL XL) 25 mg DAILY PO 10/28/24 10:30 11/27/24 10:29 10/28/24 10:35 25 MG Sodium Chloride 1,000 ml @ 100 mls/hr Q10H IV 10/28/24 06:00 11/27/24 05:59 7/9/25 02:55 100 MLS/HR NAILA WASHINGTON MD Oct 29, 2024 12:13
[2024-10-29] MEDS ORDERED: HEParin-NS 1,000 UNIT/500 ML 500 ML IV ONE (13:24)
--- NOTE | 2024-10-29 13:30 | NUR ---
PATIENT OFF THE FLOOR FOR HEART CATH. PT TEAM TO FOLLOW. Addendum: 10/29/24 at 1503 by GUZMAN NICOLE PT Amended: Links added.
[2024-10-29] MEDS ORDERED: ASPIRIN 325MG EC TAB PO ONE (13:55)
--- NOTE | 2024-10-29 14:28 | NUR ---
REPORT RECEIVED FROM FELICIA MEDLEY FROM [facility]. PT WILL BE TRANSFERRING BACK TO ROOM 329.
[2024-10-29] MEDS ORDERED: DEXTROSE 50%-WATER 50 ML DISP.SYRIN IV PRN (14:30)
[2024-10-29] MEDS ORDERED: GLUCAGON 1MG KIT 1 MG ML IM PRN (14:30)
--- NOTE | 2024-10-29 14:40 | NUR ---
PT BACK IN ROOM 329, RADIAL BAND, S/P LEAH CATH TO RIGHT WRIST, NO SIGN OF BLEEDING, DENIES ANY PAIN AT THIS TIME. SPOUSE AT BEDSIDE. POST VS IN PLACED, STABLE VS. CALL LIGHT WITHIN REACH.
[2024-10-29] MEDS: 0.9%NACL 1000ML 1,000 ML IV SCH (14:57)
--- NOTE | 2024-10-29 17:00 | NUR ---
NURSE NOTE COMPLETE REMOVING 9ML OF AIR IN RADIAL BAND, RADIAL BAND REMOVED PER ORDER, APPLIED PRESSURE WITH 4X4 AND TEGADERM. NO SIGN OF BLEEDING, DENIES ANY PAIN OR DISCOMFORT. CALL LIGHT WITHIN REACH. PT IS AWARE NOT TO APPLY PRESSURE ON HAND AND WILL BE BEDREST FOR 4 HR POST PROCEDURE UNTIL 1900.
--- NOTE | 2024-10-29 17:21 | PRN ---
PROCEDURE NOTE Indications: Chest pain, CCS III symptoms Abnormal coronary CTA done on 06/20/2024 Left ventricle systolic dysfunction (LVEF 40-45% by echocardiogram done on 02/21/2024) Procedures: Coronary angiogram, IFR of the LAD, OCT of the LAD, balloon angioplasty and SHERRELL placement in the LAD Introduction: After informed written consent was obtained, the patient was brought to the Catheterization Lab in the usual fasting state. Following sterile prep and drape, a time out was performed, then moderate sedation was administered, 1mg of Versed and 50mcg of Fentanyl, then 1% Lidocaine was infiltrated into the right wrist. Using a Modified Seldinger technique, a 6Fr Sheath was inserted into the right radial artery. While under fluoroscopic guidance, diagnostic coronary catheters were advanced over a wire into the central circulation where they were aspirated, flushed and placed to pressure monitoring, once the wire was removed. Coronary Angio: The left and right coronary arteries were engaged with appropriate catheters and angiography was performed under continuous pressure monitoring. Cardiac Findings: Right dominant system LM: Large caliber vessel with mild luminal irregularities. The vessel bifurcates into the LAD and LCX. LAD: A medium caliber vessel with 70-80% stenosis of the mid LAD. ARLIN 3 blood flow distally. Diagonal 1: Small caliber vessel with mild luminal irregularities Diagonal 2: Small caliber vessel with mild luminal irregularities LCx: Medium caliber vessel with mild luminal irregularities High OM 1: Medium caliber vessel with 30% stenosis in the proximal OM1 RCA: Large caliber vessel with with 20% stenosis in the proximal and mid RCA. RPDA: Medium caliber vessel with mild luminal irregularities. RPLV: Medium caliber vessel mild luminal irregularities Medications given: Versed 3mg, Fentanyl 100mcg, aspirin 325 mg x 1 dose, ticagrelor 180, nicardipine 600 mcg, nitro glycerin 600 mcg, heparin 7000 units Coronary Intervention: Guide catheter: [place] Guide wire: iFR wire After reviewing the above-mentioned findings the decision was made to further evaluate the LAD. The tiger guide catheter was advanced into the ostium of left main. We then performed IFR of the LAD. The degree of stenosis in the mid LAD was deemed to be hemodynamically significant (IFR 0.82). We then performed balloon angioplasty (3.0 x 20 mm), OCT assessment of the LAD and SHERRELL placement (Xience Skypoint 3.0 x 38 mm) in the mid LAD. The stent was post dilated with an NC 3.5 x 20 mm balloon achieving optimal results. Repeat angiography then revealed a widely patent stent in the mid LAD and ARLIN 3 blood flow distally. The IFR wire, and tiger guide catheter were then removed. The patient tolerated the procedure well and without issue. Complications: None Conscious Sedation Monitoring: Under my direct order and supervision, medication for moderate conscious sedation was administered by the nursing staff and the patients level of consciousness and physiological status was monitored by an independent trained nurse. Closure of Access Site: After the case completed the sheath was pulled and a TR band was deployed on the right radial artery without complication. Conclusion: 1. 1V CAD, 70-80% stenosis in the mid LAD status post successful treatment with balloon angioplasty and SHERRELL placement (Xience shanae point 3.0 x 38 mm). The stent was post dilated using a noncompliant balloon achieving optimal results 2. Nonobstructive CAD in the OM1 and RCA 3. Chest pain, CCS III symptoms 4. Abnormal coronary CTA done on 06/20/2024 5. Left ventricle systolic dysfunction (LVEF 40-45% by echocardiogram done on 02/21/2024) Recommendation: 1. Continue goal-directed medical therapy 2. Start ticagrelor 90 mg BID. Continue aspirin 81 mg daily. The patient will remain on DAPT for a minimum of 6 months and optimally 1 year. 3. Wrist precautions 4. Please enact TR band removal protocol. 5. Start NS at 100 mL/hour x3 hours. 6. 4 hours of bedrest. 7. Okay to DC in the a.. DARYA WEST MD Oct 29, 2024 17:21
--- NOTE | 2024-10-29 18:20 | PN ---
[facility] PROGRESS NOTE Date of Service: Oct 29, 2024 Time of Service: 17:43 SUBJECTIVE: This is a 59 year old female with past medical history of diabetes ,hypertension,hyperlipidemia and hypothyroidism who presents to the ED for multiple complaints such as intermittent chest pain located at left sided chest,shortness of breath ,temporal headache,dizziness ,neck pain,numbness and tingling sensation of both feet and left shoulder pain which has been on going for the past few weeks but decided to come because chest pain has been becoming more frequent now.Patient reports she knows her blood sugar has been high because she is not taking her meds because of the side effects she said.Patient reports she had a cardiac catheterization done in 2009 and she was unable to r ecall any result.Patient also states last she underwent a coronary CT angiography and result revealed high risk plaque in the mid LAD with 60-70% stenosis and plan to do cardiac cath if angina or anginal equivalent symptoms as per documentation on 06/20/2024 .Patient also reports she fell backward near the swimming pool at home 2 months ago and hitting her head but no loss of consciousness she said . Seen and examined patient in the Er awake ,alert and coherent,appears comfortable.Patient denies fever,chills,nausea,vomiting,abdominal pain,cough and palpitation. Latest vital signs temperature 98.2, heart rate 77, blood pre ssure 129/76, saturation 98% on room air. Labs: CBC result is unremarkable. Chloride 100, BUN 21, random glucose 300 alkaline phosphatase 162, total protein 8.4 TSH 1.93. Urinalysis significant with glucosuria otherwise unremarkable. CT head result revealed no acute intracranial abnormalities present. CT cervical spine without contrast result revealed questionable nondisplaced acute cortical fracture at the posterior inferior aspect of the C7 spinous process. Please check clinically for local tenderness. MRI of the cervical spine may be done for further evaluation. Mild straightening of the expected cervical lordosis with subtle dextro curvature reflects paraspinal muscle spasm. Mild spondylosis and degenerative disc disease most pronounced at C5-C6. Chest x-ray result revealed no acute cardiopulmonary process is evident. No interval changes. EKG result revealed sinus rhythm heart rate 86. While in the ER patient received 8 units of insulin IV. She was admitted for further evaluation and management. 10/29/2024 She was evaluated bedside this morning. She complain of chest pain interpreting as heaviness. She also complains of numbness in her hands and legs which is attributable to diabetic neuropathy. Troponin <4, chest pain not typical of ACS. Prior CT coronary revealed 60-70% occlusion of mid LAD.Cardiology was consulted for further management who took the patient for the labor standards director procedure and concluded with - " 1V CAD, 70-80% stenosis in the mid LAD status post successful treatment with balloon angioplasty and SHERRELL placement (Xience shanae point 3.0 x 38 mm). The stent was post dilated using a noncompliant balloon achieving optimal results." Cardiology advised patient be monitored till AM and discharge her. REVIEW OF SYSTEMS CONSTITUTIONAL: Denies fevers, chills, or night sweats. No unintentional weight loss reported. NEUROLOGICAL: Positive dizziness and headache Denies amaurosis fugax, motor weakness, sensory deficit, gait abnormalities, or tremors. ENT: No hearing loss, otalgia, otorrhea, rhinitis, rhinorrhea, hoarseness, or sore throat. CARDIOVASCULAR: Positive left sided chest pain Denies any dyspnea on exertion, orthopnea, paroxysmal nocturnal dyspnea, palpitations, life- threatening arrhythmias, claudication. PULMONARY: Positive shortness of breaths Denies cough, phlegm/sputum, hemoptysis, pleuritic chest pain. SLEEP: Denies morning headaches, daytime somnolence or napping. Denies difficulty falling asleep, staying asleep, waking from sleep. Denies knowledge of snoring. GASTROINTESTINAL: Denies any type of dysphagia to either liquids or solids. Denies nausea, vomiting, pyrosis, early satiety, abdominal pain, diarrhea, constipation, or changes in stool consistency or caliber. Denies coffee-ground emesis, hematemesis, hematochezia, or melanotic stools. GENITOURINARY: Denies frequency, urgency, nocturia, hematuria or incontinence (Storage/Irritative symptoms.) Low urinary stream, straining to void, urinary intermittency or hesitancy, splitting of the voiding stream, terminal dribbling. ENDOCRINOLOGIC: Denies polyuria, polydipsia, polyphagia or heat/cold intolerances. HEMATOLOGIC: Denies thrombophilia/previous clots, or coagulopathy/bleeding disorders. ONCOLOGIC: Denies personal history of malignancy. DERMATOLOGIC: Denies rashes or pruritus. PSYCHIATRIC: Denies any suicidal or homicidal ideation. Denies hallucinations. PHYSICAL EXAM GENERAL APPEARANCE: The patient is awake, alert, and oriented, in no acute cardiopulmonary distress. NEUROLOGICAL: Cranial nerves II-XII grossly intact. Motor is 5/5 in bilateral upper and lower extremities proximal to distal. No sensory deficits. HEENT: Face is symmetric. Pupils are equal and reactive. Extraocular movements are intact. NECK: Supple. No JVD. No thyromegaly. No submental, submandibular, pre- /postauricular, occipital or supraclavicular lymphadenopathy. CHEST: Normal chest expansion. No Telemetry. LUNGS: Absence of any rales, rhonchi or any wheezing. CARDIOVASCULAR: Regular. S1 and S2 normal. No appreciable rubs, murmurs or gallops. ABDOMEN: Soft, nontender, and nondistended. There is no rebound, voluntary guarding, or rigidity. : Deferred. No Mayers. EXTREMITIES: Positive paresthesia to both feet and hands Non-edematous and not cyanotic. No clubbing. Good capillary refill. SKIN: No skin breakdown. Vital Signs (last 8hr) Date Time Temp Pulse Resp B/P (MAP) Pulse Ox O2 Delivery O2 Flow Rate FiO2 10/29/24 15:30 74 18 125/81 99 Room Air 10/29/24 15:15 79 18 124/90 99 Room Air 10/29/24 15:00 78 18 122/76 98 Room Air 10/29/24 14:45 75 18 111/76 98 Room Air 10/29/24 14:40 97.5 73 18 119/75 98 Room Air 10/29/24 11:26 98.1 70 18 117/75 98 Room Air LABS: Laboratory: Test 10/29/24 15:28 10/29/24 07:24 10/28/24 20:15 10/28/24 07:41 Range/Units Whole Blood Glucose 238 H 70-110 MG/DL Prothrombin Time 10.3 9.6-11.6 SEC Prothromb Time International Ratio 0.97 0.85-1.15 Activated Partial Thromboplast Time 23.3 L 26.3-35.5 SEC Troponin I High Sensitivity < 4 L 4-50 ng/L White Blood Count 6.2 4.8-10.8 K/uL Red Blood Count 4.21 4.00-5.50 MIL/uL Hemoglobin 13.0 12.0-16.0 g/dL Hematocrit 37.9 36-48 % Mean Corpuscular Volume 90.0 79-99 fL Mean Corpuscular Hemoglobin 30.9 27.0-33.0 pg Mean Corpuscular Hemoglobin Concent 34.3 32.0-36.0 g/dL Red Cell Distribution Width 12.0 11.0-15.5 % Platelet Count 183 130-400 K/uL Mean Platelet Volume 10.8 H 7.5-10.5 fL Immature Granulocyte % (Auto) 0.2 0-1 % Neutrophils (%) (Auto) 46.9 40.0-77.0 % Lymphocytes (%) (Auto) 39.3 21.0-51.0 % Monocytes (%) (Auto) 9.7 3.0-13.0 % Eosinophils (%) (Auto) 3.1 0.0-8.0 % Basophils (%) (Auto) 0.8 0.0-5.0 % Neutrophils # (Auto) 2.9 1.8-7.7 K/uL Lymphocytes # (Auto) 2.4 1.0-4.8 K/uL Monocytes # (Auto) 0.6 0.1-1.0 K/uL Eosinophils # (Auto) 0.19 0.00-0.70 K/uL Basophils # (Auto) 0.05 0.00-0.20 K/uL Absolute Immature Granulocyte (auto 0.01 0-1 K/uL Nucleated Red Blood Cells 0.0 0.0-0.19 % Erythrocyte Sedimentation Rate 10 0-30 MM/HR Sodium Level 144 136-145 mmol/L Potassium Level 3.7 3.5-5.1 mmol/L Chloride Level 105 101-111 mmol/L Carbon Dioxide Level 29 21-32 mmol/L Blood Urea Nitrogen 17 7-18 mg/dL Creatinine 0.6 0.5-1.0 mg/dL Glomerular Filtration Rate Calc 103 >90 mL/min Random Glucose 211 H 70-105 mg/dL Hemoglobin A1c 14.0 H 4.0-6.0 % Estimated Average Glucose (eAG) 355 H 70-126 mg/dL Total Calcium 9.2 8.5-10.1 mg/dL Magnesium Level 1.80 1.80-2.40 mg/dL Total Bilirubin 0.6 0.2-1.0 mg/dL Aspartate Amino Transf (AST/SGOT) 18 10-37 U/L Alanine Aminotransferase (ALT/SGPT) 26 12-78 U/L Alkaline Phosphatase 121 # 50-136 U/L Total Protein 7.3 6.0-8.3 g/dL Albumin 3.9 3.5-5.0 g/dL Triglycerides Level 118 30-200 mg/dL Cholesterol Level 161 <200 mg/dL LDL Cholesterol 91 0-99 mg/dL HDL Cholesterol 46 35-85 mg/dL Vitamin B12 Level 370 193-986 pg/mL Thyroid Stimulating Hormone (TSH) 2.23 0.36-3.74 uIU/mL Free Thyroxine (T4) Direct 1.60 H 0.76-1.46 ng/dL Test 10/28/24 02:48 10/28/24 02:08 Range/Units Urine Color COLORLESS YELLOW Urine Appearance CLEAR CLEAR Urine pH 5.0 5.0-8.0 Urine Specific [place] 1.008 1.001-1.031 Urine Protein NEGATIVE NEGATIVE mg/dL Urine Glucose (UA) >=1000 H NEGATIVE mg/dL Urine Ketones NEGATIVE NEGATIVE mg/dL Urine Occult Blood NEGATIVE NEGATIVE Urine Nitrate NEGATIVE NEGATIVE Urine Bilirubin NEGATIVE NEGATIVE mg/dL Urine Urobilinogen 0.2 0.2-1.0 mg/dL Urine Leukocyte Esterase NEGATIVE NEGATIVE Britni/uL Urine RBC None 0-1 /HPF Urine WBC 0-1 0-1 /HPF Urine Bacteria RARE None Seen /HPF Direct Bilirubin 0.1 0.0-0.3 mg/dL Current Medications Medications (Trade) Dose Ordered Sig/Becky Route PRN Reason Start Time Stop Time Status Last Admin Dose Admin Acetaminophen (TYLenol 325MG TAB) 650 mg Q4H PRN PO MILD PAIN (1-3) 10/28/24 06:00 11/27/24 05:59 Acetaminophen (TYLenol 325MG TAB) 650 mg Q6H PRN PO TEMPERATURE GREATER THAN 101.5 10/28/24 06:00 11/27/24 05:59 Aspirin (Aspirin 81mg Ec Tab) 81 mg DAILY PO 10/28/24 09:00 10/28/24 06:12 DC Aspirin (Aspirin 81mg Ec Tab) 81 mg DAILY PO 10/28/24 09:00 10/28/24 10:22 DC 10/28/24 08:27 81 MG Aspirin (Aspirin 81mg Ec Tab) 81 mg DAILY PO 10/28/24 10:30 11/27/24 10:29 Atorvastatin Calcium (LIPItor 20MG) 20 mg HS PO 10/28/24 21:00 10/28/24 10:18 DC Atorvastatin Calcium (LIPItor 40MG) 40 mg HS PO 10/28/24 21:00 11/27/24 20:59 10/28/24 20:31 40 MG Dextrose (D50w) 50 ml AD PRN IV HYPOGLYCEMIA PROTOCOL 10/28/24 06:00 10/29/24 14:56 DC Dextrose (D50w) 50 ml AD PRN IV HYPOGLYCEMIA PROTOCOL 10/29/24 14:30 11/28/24 14:29 Famotidine (Pepcid 20mg Tab) 20 mg BID PO 10/28/24 09:00 11/27/24 08:59 10/28/24 20:31 20 MG Gabapentin (NEURontin 300 MG CAP) 300 mg BID PO 10/29/24 21:00 11/28/24 20:59 Glucagon (Glucagon 1mg Kit) 1 mg AD PRN IM HYPOGLYCEMIA PROTOCOL 10/28/24 06:00 10/29/24 14:57 DC Glucagon (Glucagon 1mg Kit) 1 mg AD PRN IM HYPOGLYCEMIA PROTOCOL 10/29/24 14:30 11/28/24 14:29 Insulin Glargine (LANtus 100 UNITS/ML 10 ML VIAL) 11 units HS SQ 10/29/24 21:00 11/28/24 20:59 Insulin Human Regular (humuLIN R 100 UNIT/ML 3ML) 4 unit TIDAC SQ 10/29/24 11:30 11/28/24 11:29 10/29/24 17:05 4 UNIT Insulin Human Regular (humuLIN R 100 UNIT/ML 3ML) INSULIN SLIDING SCAL... ACHS SQ 10/28/24 07:30 11/27/24 07:29 10/29/24 17:04 4 UNIT Isosorbide Mononitrate (Imdur 30mg Sr) 30 mg DAILY PO 10/28/24 10:30 11/27/24 10:29 10/28/24 10:35 30 MG Levothyroxine Sodium (SYNTHroid 150MCG TAB) 150 mcg SYN PO 10/30/24 06:30 11/29/24 06:29 Loratadine (LORATAdine 10 mg) 10 mg DAILY PO 10/30/24 09:00 11/29/24 08:59 Magnesium Sulfate 50 ml @ 0 mls/hr PROTOCOL PRN IV OTHER [SEE ORDER COMMENTS] 10/28/24 06:00 11/27/24 05:59 Metoprolol Succinate (TopROL XL) 25 mg DAILY PO 10/28/24 10:30 11/27/24 10:29 10/28/24 10:35 25 MG Miscellaneous Medication (Levothyroxine Sodium (Levothyroxine)) 1 tab ACBKFST PO 10/30/24 07:30 10/29/24 17:29 DC Nitroglycerin (Nitrostat) 0.4 mg PROTOCOL PRN SL CHEST PAIN 10/28/24 06:00 11/27/24 05:59 Ondansetron HCl (zoFRAN 4MG INJ) 4 mg Q6H PRN IV NAUSEA/VOMITING 10/28/24 06:00 11/27/24 05:59 Potassium Chloride 100 ml @ 100 mls/hr AD PRN IV POTASSIUM PROTOCOL 10/28/24 06:00 11/27/24 05:59 Potassium Chloride (K-Dur/Klor-Con 20meq) 20 meq AD PRN PO POTASSIUM PROTOCOL 10/28/24 06:00 11/27/24 05:59 Potassium Chloride (KCl 10% Elixir 20meq/15ml) 20 meq AD PRN PO POTASSIUM PROTOCOL 10/28/24 06:00 11/27/24 05:59 Sodium Chloride 1,000 ml @ 100 mls/hr Q10H IV 10/28/24 06:00 10/29/24 14:57 DC 10/29/24 02:55 100 MLS/HR Sodium Chloride 1,000 ml @ 100 mls/hr Q10H IV 10/29/24 14:30 10/29/24 17:29 DC 10/29/24 14:57 100 MLS/HR Ticagrelor (BRILinta) 90 mg BID PO 10/30/24 09:00 10/29/24 14:56 DC Ticagrelor (BRILinta) 90 mg BID PO 10/29/24 21:00 11/28/24 20:59 Trazodone HCl (DesyREL/OlepTRO) 50 mg HS PO 10/29/24 21:00 11/28/24 20:59 DIAGNOSTICS / RADIOLOGY: [ ] ASSESSMENT: Chest pain under evaluation probably secondary to coronary artery disease POA Hyperglycemia - induced metabolic symptoms POA Diabetic neuropathy POA Suspected cervical spine fracture per CT POA Uncontrolled diabetes due to medical non complaince with meds POA Hypertension POA Hyperlipidemia POA Hypothyroidism POA Moderate to severe stenosis of the mid LAD per CTA report on 06/20/2024 POA S/P Drug Eluting Stent placement in mid LAD with balloon angioplasty PLAN: Chest pain under evaluation probably secondary to coronary artery disease POA -Admitted patient in medical telemetry, Troponin<4, EKG: normal sinus rythm -Will continue atorvastatin, aspirin, nitroglycerine -Cardiology wants to take to labor standards director procedure for necessary intervention provided ct coronary revealed 50-70% mid LAD occlusion -Will follow the Cardiology recs Uncontrolled diabetes due to medical non complaince with meds POA On sliding scale insulin, blood glucose in ED 300, most recent 270 Started on lantus 11s unit OD and Regular insulin4 units with meals Consulted Ceo will wait for recs will montinor blood glucose Suspected cervical spine fracture per CT POA Had history of fall 1 month back We will seek neurosurgeon consultation Neuro check q.4 hours per nursing Hypothyroidism Resumed Thyroxine Hyperlipidemia Started on 40 mg Atorvastatin Diabetic neuropathy resumed gabapentin Hypertension Resumed home medication S/P Drug Eluting Stent placement in mid LAD with balloon angioplasty Cardiology recommended Continuing goal-directed medical therapy Cardiology Started ticagrelor 90 mg BID. Continue aspirin 81 mg daily. The patient will remain on DAPT for a minimum of 6 months and optimally 1 year. Patient cleared by cardiology to DC in the a.m. We will add prn medication for fever,pain,cough , nausea and vomiting We will replace electrolytes as needed per protocol We will start on Famotidine 20 mg po bid for GI prophylaxis We will start on heart healthy We will request labs in am Further orders to follow depending on above results ATTESTATION BY PHYSICIAN I have seen and examined the patient. I reviewed the documentation, medical decision making, and treatment plan as noted by the resident provider above. I agree with the findings and plan of care. Jcarlos Moreno MD, SUNIL MD Oct 29, 2024 18:20 YIN CURRAN MD Oct 29, 2024 19:16
[2024-10-29] MEDS: GABAPENTIN 300 MG CAPSULE PO SCH (20:29)
[2024-10-30 03:12] VITALS: BP 143/75; PULSE 72; RESP 16; TEMP 97.5
[2024-10-30 05:22] LABS: IMMATURE GRANULOCYTE ABSOLUTE 0.02 K/uL (0-1); NUCLEATED RED BLOOD CELLS 0.0 % (0.0-0.19); PLATELET COUNT (AUTO) 189 K/uL (130-400); RED BLOOD CELL COUNT(AUTO) 4.43 MIL/uL (4.00-5.50); RED CELL DISTRIBUTION WIDTH 12.1 % (11.0-15.5); WHITE BLOOD COUNT (AUTO) 6.6 K/uL (4.8-10.8)
[2024-10-30 05:39] LABS: CREATININE 0.6 mg/dL (0.5-1.0); GLOMERULAR FILTR. RATE CALC 103.0 mL/min (>90); GLUCOSE,RANDOM 201.0 mg/dL (70-105); PHOSPHORUS 5.0 mg/dL (2.5-4.9); SODIUM SERUM 142.0 mmol/L (136-145); UREA NITROGEN, BLOOD 20.0 mg/dL (7-18)
[2024-10-30] MEDS: MAGNESIUM 2GM PREMIX 50ML 50 ML IV PRN (06:16)
[2024-10-30] MEDS ORDERED: LEVOTHYROXINE SODIUM PO SCH (07:30)
[2024-10-30] MEDS: PRASUGREL HCL 10 MG TABLET PO SCH (07:56)
[2024-10-30] MEDS: LORATAdine 10 mg 10 MG TABLET PO SCH (07:57)
[2024-10-30 08:16] VITALS: BP 125/77; PULSE 72; RESP 18; TEMP 97.7
--- NOTE | 2024-10-30 11:12 | PN ---
Vitals/Labs Vital Signs Date Time Temp Pulse Resp B/P (MAP) Pulse Ox O2 Delivery O2 Flow Rate FiO2 10/30/24 08:16 97.7 72 18 125/77 99 Room Air 10/29/24 20:10 0 21 Laboratory Tests 10/30/24 04:45 CARLOS MCMULLEN QUALITY CONTROL MICROBIOLOGIST Oct 30, 2024 11:12
[2024-10-30] MEDS: MAGNESIUM OXIDE 400 MG TABLET PO ONE (11:51)
[2024-10-30 11:54] VITALS: BP 104/75; PULSE 84; RESP 18; TEMP 97.4
[2024-10-30] MEDS ORDERED: INSLAN SQ (15:46)
[2024-10-30] MEDS ORDERED: INSU100V3 SQ (15:46)
--- NOTE | 2024-10-30 15:55 | DS ---
Discharge Summary [employer] Maker(s): CARDIOLOGY, ENDOCRINOLOGY Procedure(s): PROCEDURE NOTE Name: JEMIMA JERNIGAN Acct: [id number] MR: [id number] : 1965 Admit Date: 10/27/24 DARYA WEST MD [facility] [address] [place] [address] PROCEDURE NOTE Indications: Chest pain, CCS III symptoms Abnormal coronary CTA done on 06/20/2024 Left ventricle systolic dysfunction (LVEF 40-45% by echocardiogram done on 02/21/2024) Procedures: Coronary angiogram, IFR of the LAD, OCT of the LAD, balloon angioplasty and SHERRELL placement in the LAD Introduction: After informed written consent was obtained, the patient was brought to the Catheterization Lab in the usual fasting state. Following sterile prep and drape, a time out was performed, then moderate sedation was administered, 1mg of Versed and 50mcg of Fentanyl, then 1% Lidocaine was infiltrated into the right wrist. Using a Modified Seldinger technique, a 6Fr Sheath was inserted into the right radial artery. While under fluoroscopic guidance, diagnostic coronary catheters were advanced over a wire into the central circulation where they were aspirated, flushed and placed to pressure monitoring, once the wire was removed. Coronary Angio: The left and right coronary arteries were engaged with appropriate catheters and angiography was performed under continuous pressure monitoring. Cardiac Findings: Right dominant system LM: Large caliber vessel with mild luminal irregularities. The vessel bifurcates into the LAD and LCX. LAD: A medium caliber vessel with 70-80% stenosis of the mid LAD. ARLIN 3 blood flow distally. Diagonal 1: Small caliber vessel with mild luminal irregularities Diagonal 2: Small caliber vessel with mild luminal irregularities LCx: Medium caliber vessel with mild luminal irregularities High OM 1: Medium caliber vessel with 30% stenosis in the proximal OM1 RCA: Large caliber vessel with with 20% stenosis in the proximal and mid RCA. RPDA: Medium caliber vessel with mild luminal irregularities. RPLV: Medium caliber vessel mild luminal irregularities Medications given: Versed 3mg, Fentanyl 100mcg, aspirin 325 mg x 1 dose, ticagrelor 180, nicardipine 600 mcg, nitro glycerin 600 mcg, heparin 7000 units Coronary Intervention: Guide catheter: Mallard Guide wire: iFR wire After reviewing the above-mentioned findings the decision was made to further evaluate the LAD. The tiger guide catheter was advanced into the ostium of left main. We then performed IFR of the LAD. The degree of stenosis in the mid LAD was deemed to be hemodynamically significant (IFR 0.82). We then performed ba lloon angioplasty (3.0 x 20 mm), OCT assessment of the LAD and SHERRELL placement (Xience Skypoint 3.0 x 38 mm) in the mid LAD. The stent was post dilated with an NC 3.5 x 20 mm balloon achieving optimal results. Repeat angiography then revealed a widely patent stent in the mid LAD and ARLIN 3 blood flow distally. The IFR wire, and tiger guide catheter were then removed. The patient tolerated the procedure well and without issue. Complications: None Conscious Sedation Monitoring: Under my direct order and supervision, medication for moderate conscious sedation was administered by the nursing staff and the patients level of consciousness and physiological status was monitored by an independent trained nurse. Closure of Access Site: After the case completed the sheath was pulled and a TR band was deployed on the right radial artery without complication. Conclusion: 1. 1V CAD, 70-80% stenosis in the mid LAD status post successful treatment with balloon angioplasty and SHERRELL placement (Xience shanae point 3.0 x 38 mm). The stent was post dilated using a noncompliant balloon achieving optimal results 2. Nonobstructive CAD in the OM1 and RCA 3. Chest pain, CCS III symptoms 4. Abnormal coronary CTA done on 06/20/2024 5. Left ventricle systolic dysfunction (LVEF 40-45% by echocardiogram done on 02/21/2024) Recommendation: 1. Continue goal-directed medical therapy 2. Start ticagrelor 90 mg BID. Continue aspirin 81 mg daily. The patient will remain on DAPT for a minimum of 6 months and optimally 1 year. 3. Wrist precautions 4. Please enact TR band removal protocol. 5. Start NS at 100 mL/hour x3 hours. 6. 4 hours of bedrest. 7. Okay to DC in the a.m. DARYA WEST MD Oct 29, 2024 17:21 Electronically Signed by: DARYA WEST MD10/29/24 1721 Electronically Co-Signed by: PATIENT: JEMIMA JERNIGAN MR#: [id number] : 1965 SEX: F AGE: 59 LOCATION: ED ORDER 7 STATUS: [facility] ER REPORT#: [id number] SERVICE 6 REASON: HEAD INJURY, HEADACHES ORDERING PHYSICIAN: JAMI HUYNH NP PROCEDURE: HEAD WO - CT HEAD/BRAIN W/O CONTRAST EXAM: Non-contrast CT examination of the Brain CLINICAL HISTORY: Head injury. TECHNIQUE: Thin collimated axial CT images of the brain were obtained with sagittal and coronal reformatted images also submitted. CT scan is done according to ALARA (As Low as Reasonably Achievable). CONTRAST USED: None. COMPARISON: None provided. FINDINGS: No acute intracranial abnormality is present. No acute cortical infarction, hemorrhage, mass, or mass effect. No hydrocephalus or abnormal extra-axial fluid collections. The posterior fossa is unremarkable. The skull base and calvarium are intact. The included portions of the paranasal sinuses and mastoid air cells are clear. IMPRESSION: No acute intracranial abnormality is present. /[place] DICTATED BY: REINIER LEIVA Jr., MD DATE: 10/28/24438 ELECTRONICALLY SIGNED BY: REINIER LEIVA Jr., MD DATE: 10/28/24438 PATIENT: JEMIMA JERNIGAN MR#: [id number] : 1965 SEX: F AGE: 59 LOCATION: ED ORDER 2 STATUS: [facility] REPORT#: [id number] SERVICE 2 REASON: numbness and tingline to both hands/fingers ORDERING PHYSICIAN: JAMI HUYNH NP PROCEDURE: C SPIN WO - CT CERVICAL SPINE W/O CONTRAST EXAM: CT Cervical Spine Without IV Contrast CLINICAL HISTORY: Numbness and tingling in both hands and fingers. TECHNIQUE: Thin collimated axial CT images of the cervical spine were obtained with sagittal and coronal reformatted images also submitted. CT scan done according to ALARA (As Low As Reasonably Achievable). CONTRAST: None. COMPARISON: None provided. FINDINGS: Questionable nondisplaced acute cortical fracture at the posterior inferior aspect of the C7 spinous process. The cervical vertebral body heights are maintained. Mild straightening of the expected cervical lordosis with subtle dextrocurvature reflects paraspinal muscle spasm. Mild spondylosis is evident by marginal osteophytes and facet arthropathy at multiple levels. Mild degenerative disc disease at multiple levels, most pronounced at C5-C6. Mild bilateral neuroforaminal narrowing at C5-C6. No spinal/stenosis. Presumed post-total thyroidectomy status. The included lungs are clear. No focal soft tissue abnormality is evident in the neck. IMPRESSIONS: Questionable nondisplaced acute cortical fracture at the posterior inferior aspect of the C7 spinous process. Please check clinically for local tenderness. MRI of the cervical spine may be done for further evaluation. Mild straightening of the expected cervical lordosis with subtle dextrocurvature reflects paraspinal muscle spasm. Mild spondylosis and degenerative disc disease, most pronounced at C5-C6. /[place] DICTATED BY: REINIER LEIVA Jr., MD DATE: 10/28/24449 ELECTRONICALLY SIGNED BY: REINIER LEIVA Jr., MD DATE: 10/28/24449 PATIENT: JEMIMA JERNIGAN MR#: [id number] : 1965 SEX: F AGE: 59 LOCATION: [facility] ORDER STATUS: [facility] REPORT#: [id number] SERVICE REASON: shortness of breath, chest pain ORDERING PHYSICIAN: JAMI HUYNH NP PROCEDURE: CXR1VW - CHEST 1VW EXAM: CR Chest, 1 view CLINICAL HISTORY: Shortness of breath. COMPARISON: Chest radiograph dated 07/24/2007. FINDINGS: The lungs show no infiltrates or other acute findings. No pleural effusion or pneumothorax. The cardiomediastinal silhouette is within normal limits. No acute osseous abnormality. IMPRESSION: No acute cardiopulmonary process is evident. No interval changes. /[place] DICTATED BY: REINIER LEIVA Jr., MD DATE: 10/28/24312 ELECTRONICALLY SIGNED BY: REINIER LEIVA Jr., MD DATE: 10/28/24312 PATIENT: JEMIMA JERNIGAN MR#: [id number] : 1965 SEX: F AGE: 59 LOCATION: [facility] ORDER STATUS: [facility] ER REPORT#: [id number] SERVICE REASON: shortness of breath, chest pain ORDERING PHYSICIAN: JAMI HUYNH NP PROCEDURE: CXR1VW - CHEST 1VW EXAM: CR Chest, 1 view CLINICAL HISTORY: Shortness of breath. COMPARISON: Chest radiograph dated 07/24/2007. FINDINGS: The lungs show no infiltrates or other acute findings. No pleural effusion or pneumothorax. The cardiomediastinal silhouette is within normal limits. No acute osseous abnormality. IMPRESSION: No acute cardiopulmonary process is evident. No interval changes. /[place] DICTATED BY: REINIER LEIVA Jr., MD DATE: 10/28/24312 ELECTRONICALLY SIGNED BY: REINIER LEIVA Jr., MD DATE: 10/28/24312 Assessment/Plan: ASSESSMENT: Chest pain under evaluation probably secondary to coronary artery disease POA Hyperglycemia - induced metabolic symptoms POA Diabetic neuropathy POA Suspected cervical spine fracture per CT POA Uncontrolled diabetes due to medical non complaince with meds POA Hypertension POA Hyperlipidemia POA Hypothyroidism POA Moderate to severe stenosis of the mid LAD per CTA report on 06/20/2024 POA S/P Drug Eluting Stent placement in mid LAD with balloon angioplasty PLAN: Chest pain under evaluation probably secondary to coronary artery disease POA -Admitted patient in medical telemetry, Troponin<4, EKG: normal sinus rythm -Will continue atorvastatin, aspirin, nitroglycerine -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 for necessary intervention provided ct coronary revealed 50-70% mid LAD occlusion -Will follow the Cardiology recs Uncontrolled diabetes due to medical non complaince with meds POA On sliding scale insulin, blood glucose in ED 300, most recent 270 Started on lantus 11s unit OD and Regular insulin4 units with meals Consulted Internal Audit Director will wait for recs will montinor blood glucose Suspected cervical spine fracture per CT POA Had history of fall 1 month back We will seek neurosurgeon consultation Neuro check q.4 hours per nursing Hypothyroidism Resumed Thyroxine Hyperlipidemia Started on 40 mg Atorvastatin Diabetic neuropathy resumed gabapentin Hypertension Resumed home medication S/P Drug Eluting Stent placement in mid LAD with balloon angioplasty Cardiology recommended Continuing goal-directed medical therapy Cardiology Started ticagrelor 90 mg BID. Continue aspirin 81 mg daily. The patient will remain on DAPT for a minimum of 6 months and optimally 1 year. Patient cleared by cardiology to DC in the a.m. We will add prn medication for fever,pain,cough , nausea and vomiting We will replace electrolytes as needed per protocol We will start on Famotidine 20 mg po bid for GI prophylaxis We will start on heart healthy We will request labs in am Further orders to follow depending on above results Home Medications: Reported Medications Gabapentin (Neurontin) 300 Mg Capsule, 1 CAP PO BID for 30 Days, #90 CAP 0 Refills 10/28/24 [Potassium] No Conflict Check, 99 MG PO DAILY 10/28/24 Metoprolol Succinate (Metoprolol Succinate) 25 Mg Tab.er.24h, 1 TAB PO DAILY for 30 Days, #30 TAB 0 Refills 10/28/24 Rosuvastatin Calcium (Rosuvastatin Calcium) 40 Mg Tablet, 1 TAB PO HS for high cholesterol for 30 Days, #30 TAB 0 Refills 10/28/24 Meloxicam (Meloxicam) 7.5 Mg Tablet, 1 TAB PO DAILY for 30 Days, #30 TAB 0 Refills 10/28/24 Trazodone HCl (Trazodone HCl) 50 Mg Tablet, 1 TAB PO HS for 30 Days, #30 TAB 0 Refills 10/28/24 Loratadine (Loratadine) 10 Mg Tablet, 1 TAB PO DAILY for allergy symptoms for 30 Days, #30 TAB 0 Refills 10/28/24 Levothyroxine Sodium (Levothyroxine) 150 Mcg Capsule, 1 TAB PO ACBKFST for 30 Days, #30 CAP 0 Refills 10/28/24 New Medications: Insulin Glargine,Hum.rec.anlog (Lantus) 100 Unit/Ml Inj 18 UNITS SQ HS, #2 ML 1 Refill Insulin Regular, Human (Humulin R) 100 Unit/Ml Vial 8 UNIT SQ TIDAC, #3 VIAL 1 Refill Continued Medications: Gabapentin (Neurontin) 300 Mg Capsule 1 CAP PO BID for 30 Days, #90 CAP 0 Refills Levothyroxine Sodium (Levothyroxine) 150 Mcg Capsule 1 TAB PO ACBKFST for 30 Days, #30 CAP 0 Refills Loratadine (Loratadine) 10 Mg Tablet 1 TAB PO DAILY for allergy symptoms for 30 Days, #30 TAB 0 Refills Meloxicam (Meloxicam) 7.5 Mg Tablet 1 TAB PO DAILY for 30 Days, #30 TAB 0 Refills Metoprolol Succinate (Metoprolol Succinate) 25 Mg Tab.er.24h 1 TAB PO DAILY for 30 Days, #30 TAB 0 Refills [Potassium] () 99 MG PO DAILY Trazodone HCl (Trazodone HCl) 50 Mg Tablet 1 TAB PO HS for 30 Days, #30 TAB 0 Refills Discontinued Medications: Rosuvastatin Calcium (Rosuvastatin Calcium) 40 Mg Tablet 1 TAB PO HS for high cholesterol for 30 Days, #30 TAB 0 Refills CHAPITO PACKER MD Oct 30, 2024 15:55
[2024-10-30 16:04] VITALS: BP 124/90; PULSE 80; RESP 18; TEMP 98
--- NOTE | 2024-10-30 18:00 | NUR ---
DC NOTE DC INSTRUCTIONS AND FOLLOW UP APPOINTMENTS GIVEN TO PT WITH E-SCRIPT AND PRINTED PRESCRIPTION. SPOUSE AT BEDSIDE. PIV AND TELE MONITOR REMOVED, CATHETER INTACT, DENIES ANY PAIN OR DISCOMFORT. S/P RADIAL BAND SITE NO SIGN OF BLEEDING AND NO HEMATOMA IS SEEN. PT EAGER TO BE DC. PT IS WHEELED DOWNSTAIRS WITH DIGITAL MANAGER INTO VIA PRIVATE CAR. NO FURTHER COMMENTS OR CONCERNS AT THIS TIME. Addendum: 10/30/24 at 1999 by CALIN RAMIREZ RN RN WRONG TIME, PT WAS DC AT 1900 NOT 1800.
[2024-11-02] MEDS ORDERED: INSLAN SQ ×2 (15:44→15:57)
[2024-11-02] MEDS ORDERED: INSU100V3 IJ ×2 (15:44→15:57)
[2024-11-02] MEDS ORDERED: SYRI1DIS SQ (15:54)
== END 2024-10-30 18:56 | disposition home or self-care (01) | DRG 322 ==
LOC: EDH 23:32 → EDHIP 23:33 → 3AH 10-28 17:57
PROVIDERS: ADMIT Hospitalist; ATTEND Hospitalist
PROC: B2111ZZ Fluoroscopy of Multiple Coronary Arteries using Low Osmolar Contrast (ICD-10-PCS; principal; 2024-10-29)
PROC: 027034Z Dilation of Coronary Artery, One Artery with Drug-eluting Intraluminal Device, Percutaneous Approach (ICD-10-PCS; 2024-10-29)
PROC: 4A033BC Measurement of Arterial Pressure, Coronary, Percutaneous Approach (ICD-10-PCS; 2024-10-29)
DX: I25.10 Atherosclerotic heart disease of native coronary artery without angina pectoris (principal); S12.601A Unspecified nondisplaced fracture of seventh cervical vertebra, initial encounter for closed fracture; E11.40 Type 2 diabetes mellitus with diabetic neuropathy, unspecified; E11.65 Type 2 diabetes mellitus with hyperglycemia; E78.1 Pure hyperglyceridemia; I10 Essential (primary) hypertension; S09.90XA Unspecified injury of head, initial encounter; W01.0XXA Fall on same level from slipping, tripping and stumbling without subsequent striking against object, initial encounter; F32.A Depression, unspecified; E78.00 Pure hypercholesterolemia, unspecified; M50.322 Other cervical disc degeneration at C5-C6 level; E03.9 Hypothyroidism, unspecified; X58.XXXA Exposure to other specified factors, initial encounter; Z85.850 Personal history of malignant neoplasm of thyroid; Z90.710 Acquired absence of both cervix and uterus; Z79.02 Long term (current) use of antithrombotics/antiplatelets; Z79.82 Long term (current) use of aspirin; Z91.148 Patient's other noncompliance with medication regimen for other reason; Z95.5 Presence of coronary angioplasty implant and graft; Y93.89 Activity, other specified; Y92.89 Other specified places as the place of occurrence of the external cause; Y99.8 Other external cause status
CPT/HCPCS: 36415; 70450; 71045; 72125; 80048; 80053; 80061; 80076; 81001; 82607; 82948; 83036; 83735; 84100; 84439; 84443; 84484; 85025; 85347; 85610; 85651; 85730; 92978; 93005; 93454; 93571; 99156; 99157; 99285; C1769; C1894; C9600; G0378; J1644; J1815; J2250; J3010; J3475; J3490; J7030; Q9967; A4649; C1725; C1874; C1887; Q9965